=== PATIENT | female | born 1955 | race Caucasian/White ===

== ENCOUNTER → 2021-01-14 08:21 | Outpatient (CLI) | payer MEDICARE, SELFPAY ==
[2021-01-14 09:21] LABS: Hemoglobin A1C% w Est Avg Glu 5.9 % (4.0-6.0)
[2021-01-14 10:16] LABS: TSH w/ Reflex to FT4 0.06 uIU/mL (0.47-4.68)
[2021-01-14 11:49] LABS: Free T4, Direct Thyroxine 1.49 ng/dL (0.78-2.19)
== END ==
PROVIDERS: PCP Family Medicine; Referring Provider Family Medicine; Visit Provider Family Medicine
DX: E11.9 Type 2 diabetes mellitus without complications (principal); E03.9 Hypothyroidism, unspecified; G47.00 Insomnia, unspecified
CPT/HCPCS: 36415; 83036; 84439; 84443

== ENCOUNTER → 2021-02-11 10:58 | Outpatient (CLI) | payer MEDICARE, SELFPAY ==
--- NOTE | 2021-02-11 10:59 | DI.MG.S_ITS ---
BILATERAL DIGITAL SCREENING MAMMOGRAM 3D/2D WITH CAD POST LUMPECTOMY: 02/11/2021 CLINICAL: Routine screening. Personal history of right breast cancer. Family history of breast cancer. Comparison is made to exams dated: 10/18/2019 mammogram, 10/25/2017 mammogram, and 02/07/2017 mammogram - [facility]. The tissue of both breasts is heterogeneously dense. This may lower the sensitivity of mammography. Current study was also evaluated with a Computer Aided Detection (CAD) system. No significant masses, calcifications, or other findings are seen in either breast. There has been no significant interval change. IMPRESSION: NEGATIVE There is no mammographic evidence of malignancy. A 1 year screening mammogram is recommended. This exam was interpreted at Station ID: [id number]. NOTE: For mammograms, a report in lay terms will be sent to the patient. Approximately 15% of breast malignancies will not be visualized mammographically. In the management of a palpable breast mass, a negative mammogram must not discourage biopsy of a clinically suspicious lesion. Electronically Signed By: Cole franks/reyna:02/11/2021 11:25:49 letter sent: Normal Exam ACR BI-RADS Category 1: Negative 3341F
--- NOTE | 2021-02-11 10:59 | DI.MRI.S_ITS ---
BREAST MRI OF BOTH BREASTS- POST LUMPECTOMY WITH CAD: 02/11/2021 CLINICAL: Follow up. Comparison is made to exams dated: 10/18/2019 breast MRI, 10/25/2017 breast MRI, 02/07/2017 breast MRI - [facility], and 02/11/2021 mammogram - [facility]. Interpretation of this MRI was correlated with available mammograms and previous MRI scans. Informed consent was obtained from the patient. 20 cc of ProHance (Gadoteridol) nonionic contrast was injected. Axial T1, T2, sagittal T1, and pre and post contrast T1 images were obtained with a dedicated breast coil. Post processing was performed including computer aided calculations of any tumor volumes and dimensions. There is mild background parenchymal enhancement. Right breast: There are postsurgical changes redemonstrated in the lower inner quadrant status post partial mastectomy. No new discrete mass or suspicious enhancement to suggest malignancy. Left breast: No discrete mass or suspicious enhancement to suggest malignancy. Miscellaneous: No internal mammary or axillary lymphadenopathy by size criteria. A small region of T2 hyperintensity is redemonstrated in the right anterior cardiophrenic angle which appears similar to the prior MRI and may represent a small lymph node. Mild retrosternal soft tissue thickening anterior to the ascending thoracic aorta appears unchanged and likely represents scarring or postradiation changes. IMPRESSION: BENIGN 1. Postsurgical changes status post partial mastectomy within the lower inner quadrant of the right breast. No evidence of recurrent malignancy in the right or left breast. 2. No axillary or internal mammary lymphadenopathy by size criteria. 3. Mildly prominent retrosternal soft tissue thickening appears unchanged from the prior study and likely represents scarring. Recommend continued annual screening MRI if clinically indicated. This exam was interpreted at Station ID: [id number]. Electronically Signed By: Cole Mensah M.D. ddp/:02/11/2021 13:22:28 ACR BI-RADS Category 2: Benign Finding(s) 3342F
== END ==
PROVIDERS: PCP Family Medicine; Referring Provider Family Medicine; Visit Provider Family Medicine
DX: Z08 Encounter for follow-up examination after completed treatment for malignant neoplasm (principal); Z85.3 Personal history of malignant neoplasm of breast; Z12.31 Encounter for screening mammogram for malignant neoplasm of breast
CPT/HCPCS: 77049; 77063; 77067; A9579

== ENCOUNTER → 2021-03-03 11:37 | Outpatient (CLI) | payer MEDICARE, SELFPAY ==
[2021-03-03 13:05] LABS: Thyroid Stimulating Hormone 0.353 uIU/mL (0.47-4.68)
== END ==
PROVIDERS: PCP Family Medicine; Referring Provider Family Medicine; Visit Provider Family Medicine
DX: E03.9 Hypothyroidism, unspecified (principal)
CPT/HCPCS: 36415; 84443

== ENCOUNTER → 2021-04-07 11:21 | Outpatient (CLI) | payer MEDICARE, SELFPAY ==
[2021-04-07 13:01] LABS: Thyroid Stimulating Hormone 1.15 uIU/mL (0.47-4.68)
== END ==
PROVIDERS: PCP Family Medicine; Referring Provider Family Medicine; Visit Provider Family Medicine
DX: I10 Essential (primary) hypertension (principal); E03.9 Hypothyroidism, unspecified
CPT/HCPCS: 36415; 84443

== ENCOUNTER → 2021-05-20 10:30 | Outpatient (CLI) | payer MEDICARE, SELFPAY ==
--- NOTE | 2021-05-20 10:32 | DI.RAD.S_ITS ---
PROCEDURE: XR FOOT RT MIN 3V INDICATIONS: foot pain bilateral TECHNIQUE: 3 views of the foot were acquired. COMPARISON: None. FINDINGS: Bones: No fractures or dislocations. No suspicious bony lesions. Soft tissues: No tibiotalar joint effusion. Achilles tendon appears normal. IMPRESSION: Unremarkable right foot radiographs Approved by: Dawson Burrell M.D. on 05/20/2021 at 13:19
--- NOTE | 2021-05-20 10:32 | DI.RAD.S_ITS ---
PROCEDURE: XR FOOT LT MIN 3V INDICATIONS: foot pain bilateral TECHNIQUE: 3 nonweightbearing views of the foot were acquired. COMPARISON: None. FINDINGS: Bones: No acute fractures or dislocations. No suspicious bony lesions. Mild degenerative changes are seen in the 1st metatarsophalangeal joint. Scattered degenerative changes are seen in the interphalangeal joints of toes. A small plantar calcaneal spur is present. Soft tissues: No suspicious soft tissue calcification. IMPRESSION: No acute osseous abnormality. Mild scattered osteoarthrosis. If the symptoms persist, consider cross sectional imaging such as MRI or CT for further assessment. Dictated by: Mandeep Art M.D. on 05/20/2021 at 13:17 Approved by: Mandeep Art M.D. on 05/20/2021 at 13:18
== END ==
PROVIDERS: PCP Family Medicine; Referring Provider Family Medicine; Visit Provider Family Medicine
DX: G57.93 Unspecified mononeuropathy of bilateral lower limbs (principal); M79.671 Pain in right foot; M79.672 Pain in left foot; M19.072 Primary osteoarthritis, left ankle and foot
CPT/HCPCS: 73630

== ENCOUNTER → 2021-09-20 06:59 | Outpatient (CLI) | payer MEDICARE, SELFPAY ==
[2021-09-20 07:57] LABS: Hemoglobin A1C% w Est Avg Glu 5.7 % (4.0-6.0)
[2021-09-20 08:03] LABS: Alanine Aminotransferase 23 IU/L (<35); Albumin 4.3 g/dL (3.5-5.0); Albumin Globulin Ratio 1.8 (1.0-2.8); Alkaline Phosphatase 44 U/L (38-126); Aspartate Aminotransferase 28 IU/L (14-36); BUN Creatinine Ratio 17.4 (6-22); Bilirubin Total 0.6 mg/dL (0.2-1.3); Blood Urea Nitrogen 15 mg/dL (7-17); Calcium 9.5 mg/dL (8.4-10.2); Carbon Dioxide 33 mmol/L (22-32); Chloride 100 mmol/L (98-107); Cholesterol 150 mg/dL (140-199); Estimated Glomerular Filt Rate > 60.0 mL/min (>60); Globulin 2.4 g/dL (1.7-4.1); Glucose 94 mg/dL (80-110); HDL Cholesterol 56 mg/dL (40-60); HEMOLYSIS < 15 (0-50); LDL Cholesterol Calculated 67 mg/dL (<100); Sodium 139 mmol/L (137-145); Total Protein 6.7 g/dL (6.3-8.2); Triglycerides 136 mg/dL (35-150)
[2021-09-20 08:30] LABS: TSH w/ Reflex to FT4 1.84 uIU/mL (0.47-4.68)
== END ==
PROVIDERS: PCP Family Medicine; Referring Provider Family Medicine; Visit Provider Family Medicine
DX: E11.9 Type 2 diabetes mellitus without complications (principal); E78.5 Hyperlipidemia, unspecified; E03.9 Hypothyroidism, unspecified; G47.00 Insomnia, unspecified
CPT/HCPCS: 36415; 80053; 80061; 83036; 84443

== ENCOUNTER → 2021-10-18 11:17 | Outpatient (CLI) | payer MEDICARE, SELFPAY ==
[2021-10-18 13:16] LABS: COVID19 -Nasal RAPID Negative (Negative)
== END ==
PROVIDERS: PCP Family Medicine; Visit Provider Nurse Practitioner Family
DX: Z20.822 Contact with and (suspected) exposure to COVID-19 (principal)
CPT/HCPCS: 87635; C9803

== ENCOUNTER 2021-10-19 09:39 | Day surgery (SDC) | payer MEDICARE, SELFPAY ==
[2021-10-19 10:25] VITALS: BP 111/71; PULSE 53; RESP 16; TEMP 36.5; O2SAT 99; BMI 20.9
[2021-10-19] MEDS: PROPARACAINE 0.5% OPHTH SOL 2 DROPS EYE-OP (10:37)
[2021-10-19] MEDS: CATARACT EYE COMPOUND (10 DROPS/SYRINGE) 3 DROPS EYE-OP (10:40)
--- NOTE | 2021-10-19 11:05 | PM.PREOP ---
Pre-operative Note Interval Note History & Physical reviewed/Exam performed by Physician: Yes Changes to H&P: No
--- NOTE | 2021-10-19 11:06 | PM.OP.1 ---
Operative Date/Time/Diagnoses Pre-op diagnosis: Nuclear cataract right eye Procedure & Clinicians Procedure: Cataract Surgery Same procedure as scheduled: Yes Surgeon: Supa Hui Anesthesia Type: MAC +/- and Sedation Operative Notes Procedure in detail: Patient brought to the operating suite. Tetracaine drops placed in the right eye. Patient was prepped and draped in sterile manner. Wire lid speculum was placed in the eye. Betadine drops were placed on the eye. This was irrigated. Lidocaine jelly was placed on the eye. A paracentesis port was created with a side-port blade. 0.1 mL 1% preservative free lidocaine was injected into the anterior chamber. The anterior chamber was deepened with viscoelastic. 2.6 mm keratome was used to create a temporal clear corneal incision. Cystotome and Utrata forceps were used to create continuous tear capsulorrhexis. Balanced salt solution was used to hydro dissect the nucleus. The phacoemulsification handpiece was inserted and the nucleus was removed using the stop and chop technique. The irrigation aspiration handpiece was inserted and the remaining cortex was removed. Anterior chamber was deepened with viscoelastic. An Sweet ZXR00 intraocular lens with a power of 19.5 was injected into the capsular bag. Irrigation aspiration handpiece was inserted and the remaining viscoelastic was removed. Incision was hydrated with balanced salt solution and found to be leak free with pressure with Weck-Margo sponges. 0.1 mL Vigamox injected anterior chamber. 0.3 mL Kenalog 10 mg was injected subconjunctivally. Lid speculum was removed. The patient left the operating room in excellent condition. Complications: none Post-operative Condition: stable Disposition: same day surgery
[2021-10-19] MEDS: MOXIFLOXACIN INJ 4 MG/0.8 ML VIAL 0.5 MG EYE-OP (11:50)
[2021-10-19] MEDS: HYALURONATE SODIUM 30 MG-10 MG/ML SYRINGES 1 BOX INTRAOCULA (11:50)
[2021-10-19] MEDS: TETRACAINE 0.5% OPHTH DROPS 4 ML 2 DROPS EYE-OP (11:50)
[2021-10-19] MEDS: LIDOCAINE 2% (GLYDO) 6 ML GEL TOP (11:50)
[2021-10-19] MEDS: PHENYLEPHRINE/LIDOCAINE VIAL (OR) 0.2 ML EYE-OP (11:50)
[2021-10-19] MEDS: TRIAMCINOLONE 50 MG/5 ML VIAL INJ (11:50)
[2021-10-19] MEDS: BALANCED SALT IRRIG SOLN NO.2 500 ML, EPINEPHrine 1 MG IRR (11:50)
[2021-10-19 12:00] VITALS: BP 99/67; PULSE 59; RESP 16; TEMP 36.4; O2SAT 97
--- NOTE | 2021-10-19 13:52 | SUR.PHASEII ---
Late entry: BP low, pt stated she runs low, BP on admit 111 systolic. Pt denies any dizziness or lightheadedness, left unit in stable condition.
== END 2021-10-19 12:30 | disposition home or self-care (01) ==
PROVIDERS: PCP Family Medicine; Referring Provider Ophthalmology; Visit Provider Ophthalmology
PROC: (CPT 66984; principal; 2021-10-19 11:15)
DX: H25.11 Age-related nuclear cataract, right eye (principal); R73.03 Prediabetes; E03.9 Hypothyroidism, unspecified
CPT/HCPCS: 66984; J0171; J2250; J3301; V2788

== ENCOUNTER → 2021-11-05 09:24 | Outpatient (CLI) | payer MEDICARE, SELFPAY ==
[2021-11-05 09:58] LABS: COVID19 -Nasal RAPID Negative (Negative)
== END ==
PROVIDERS: PCP Family Medicine; Visit Provider Nurse Practitioner Family
DX: Z20.822 Contact with and (suspected) exposure to COVID-19 (principal)
CPT/HCPCS: 87635

== ENCOUNTER → 2021-11-08 11:26 | Outpatient (CLI) | payer MEDICARE, SELFPAY ==
[2021-11-08 16:13] LABS: COVID19 -Nasal RAPID Negative (Negative)
== END ==
PROVIDERS: PCP Family Medicine; Referring Provider Physician Assistant; Visit Provider Physician Assistant
DX: Z01.812 Encounter for preprocedural laboratory examination (principal); Z20.822 Contact with and (suspected) exposure to COVID-19
CPT/HCPCS: 87635; C9803

== ENCOUNTER 2021-11-09 07:57 | Day surgery (SDC) | payer MEDICARE, SELFPAY ==
[2021-11-09 08:58] VITALS: BP 98/59; PULSE 57; RESP 16; TEMP 36.3; O2SAT 99; BMI 20.5
[2021-11-09] MEDS: PROPARACAINE 0.5% OPHTH SOL 2 DROPS EYE-OP (09:03)
[2021-11-09] MEDS: CATARACT EYE COMPOUND (10 DROPS/SYRINGE) 3 DROPS EYE-OP (09:05)
--- NOTE | 2021-11-09 09:51 | PM.PREOP ---
Pre-operative Note Interval Note History & Physical reviewed/Exam performed by Physician: Yes Changes to H&P: No
--- NOTE | 2021-11-09 09:51 | PM.OP.1 ---
Operative Date/Time/Diagnoses Pre-op diagnosis: Nuclear Cataract Left eye Post-op diagnosis: same Procedure & Clinicians Same procedure as scheduled: Yes Surgeon: Supa Hui Anesthesia Type: MAC +/- and Sedation Operative Notes Procedure in detail: Patient brought to the operating suite. Tetracaine drops placed in the left eye. Patient was prepped and draped in sterile manner. Wire lid speculum was placed in the eye. Betadine drops were placed on the eye. This was irrigated. Lidocaine jelly was placed on the eye. A paracentesis port was created with a side-port blade. 0.1 mL 1% preservative free lidocaine was injected into the anterior chamber. The anterior chamber was deepened with viscoelastic. 2.6 mm keratome was used to create a temporal clear corneal incision. Cystotome and Utrata forceps were used to create continuous tear capsulorrhexis. Balanced salt solution was used to hydro dissect the nucleus. The phacoemulsification handpiece was inserted and the nucleus was removed using the stop and chop technique. The irrigation aspiration handpiece was inserted and the remaining cortex was removed. Anterior chamber was deepened with viscoelastic. An Sweet ZXR00 intraocular lens with a power of 19.5 was injected into the capsular bag. Irrigation aspiration handpiece was inserted and the remaining viscoelastic was removed. Incision was hydrated with balanced salt solution and found to be leak free with pressure with Weck-Margo sponges. 0.1 mL Vigamox injected anterior chamber. 0.3 mL Kenalog 10 mg was injected subconjunctivally. Lid speculum was removed. The patient left the operating room in excellent condition. Complications: none Post-operative Condition: stable Disposition: same day surgery
[2021-11-09] MEDS: MOXIFLOXACIN INJ 4 MG/0.8 ML VIAL 0.5 MG EYE-OP (10:13)
[2021-11-09] MEDS: HYALURONATE SODIUM 30 MG-10 MG/ML SYRINGES 1 BOX INTRAOCULA (10:13)
[2021-11-09] MEDS: BALANCED SALT IRRIG SOLN NO.2 500 ML, EPINEPHrine 1 MG IRR (10:14)
[2021-11-09] MEDS: PHENYLEPHRINE/LIDOCAINE VIAL (OR) 0.2 ML EYE-OP (10:14)
[2021-11-09] MEDS: TETRACAINE 0.5% OPHTH DROPS 4 ML 2 DROPS EYE-OP (10:14)
[2021-11-09] MEDS: TRIAMCINOLONE 50 MG/5 ML VIAL INJ (10:14)
[2021-11-09] MEDS: LIDOCAINE 2% (GLYDO) 6 ML GEL TOP (10:14)
[2021-11-09 10:25] VITALS: BP 91/56; PULSE 56; RESP 16; TEMP 36.7; O2SAT 99
== END 2021-11-09 11:50 | disposition home or self-care (01) ==
PROVIDERS: PCP Family Medicine; Referring Provider Ophthalmology; Visit Provider Ophthalmology
PROC: (CPT 66984; principal; 2021-11-09 09:45)
DX: H25.12 Age-related nuclear cataract, left eye (principal); R73.03 Prediabetes
CPT/HCPCS: 66984; 82962; J0171; J2250; J3301; V2788

== ENCOUNTER 2022-01-19 12:18 | Emergency (ER) | payer MEDICARE, SELFPAY ==
[2022-01-19 12:32] VITALS: BP 140/68; PULSE 74; RESP 18; TEMP 36.8; O2SAT 98; BMI 20.8
[2022-01-19 12:35] VITALS: BP 140/68; PULSE 69; O2SAT 98
[2022-01-19] MEDS: SODIUM CHLORIDE 0.9% 1,000 ML 1000 ML IV (12:48)
[2022-01-19] MEDS: ONDANSETRON 4 MG/2 ML INJ IV (12:52)
[2022-01-19 13:00] VITALS: BP 131/59; PULSE 62; RESP 18; O2SAT 96
[2022-01-19 13:15] LABS: Bacteria Urine None Seen; Calcium Oxalate Crystals Urine Moderate; Culture Indicated Urine Cult Not Indicated; RBC Urine 1-5/HPF (0-5/HPF); WBC Urine None Seen (0-5/HPF)
[2022-01-19 13:16] LABS: Add Manual Diff / Slide Review NO; Basophils Absolute Auto 0 /uL (0-100); Basophils Percent Auto 0.6 % (0-2); Eosinophils Absolute Auto 100 /uL (0-450); Eosinophils Percent Auto 1.7 % (2-4); Hematocrit 41.9 % (36-46); Hemoglobin 14.4 g/dL (12.0-16.0); Lymphocytes Absolute Auto 1100 /uL (1100-4500); Lymphocytes Percent Auto 13.2 % (25-40); Mean Corpuscular HGB Conc 34.4 % (30-36); Mean Corpuscular Hemoglobin 31.8 PG (26-34); Mean Corpuscular Volume 92.6 fL (80-100); Monocytes Absolute Auto 500 /uL (0-900); Monocytes Percent Auto 6.2 % (3-14); Neutrophils Absolute Auto 6600 /uL (1500-7000); Neutrophils Percent Auto 78.3 % (50-75); Platelet Count 312 X10^3/uL (150-400); Red Blood Cell Count 4.52 X10^6/uL (4.0-5.2); Red Cell Distribution Width 12.4 % (11.6-14.8); White Blood Cell Count 8.4 X10^3/uL (4.5-11.0)
[2022-01-19 13:21] LABS: Alanine Aminotransferase 20 IU/L (<35); Albumin 4.8 g/dL (3.5-5.0); Albumin Globulin Ratio 1.6 (1.0-2.8); Alkaline Phosphatase 60 U/L (38-126); Aspartate Aminotransferase 29 IU/L (14-36); BUN Creatinine Ratio 18.8 (6-22); Bilirubin Total 0.5 mg/dL (0.2-1.3); Blood Urea Nitrogen 13 mg/dL (7-17); Calcium 9.6 mg/dL (8.4-10.2); Carbon Dioxide 26 mmol/L (22-32); Chloride 103 mmol/L (98-107); Estimated Glomerular Filt Rate > 60.0 mL/min (>60); Glucose 117 mg/dL (80-110); HEMOLYSIS < 15 (0-50); Lipase 118 U/L (23-300); Potassium 3.9 mmol/L (3.4-5.1); Sodium 137 mmol/L (137-145); Total Protein 7.8 g/dL (6.3-8.2)
--- NOTE | 2022-01-19 13:21 | ED.NAVMDI ---
HPI - Nausea/Vomiting/Diarrhea General Chief complaint: Nausea/Vomiting/Diarrhea Stated complaint: Dehydrated, nausea vomiting Time Seen by Provider: 01/19/22 13:20 Source: patient Mode of arrival: Family Vehicle History of Present Illness HPI Narrative: Patient is a 66-year-old female who presents with diarrhea nausea and vomiting. She says it started yesterday. She has been unable to keep anything down today. She really does not have any pain. She just feels like she might be dehydrated. Her neighbor had something similar. Still lightheaded when she stands but she has passed. She has no chest pain or palpitations. Not had any fever or chills. Related Data Home Medications Medication Instructions Recorded Confirmed clotrimazole 1 % topical cream 1 applictn TOP BID PRN 09/07/20 11/09/21 (Antifungal (clotrimazole)) cholecalciferol (vitamin D3) 25 25 mcg PO DAILY 09/28/21 11/09/21 mcg (1,000 unit) capsule citracel w/ D3 8 ml PO DAILY 09/28/21 11/09/21 magnesium 250 mg tablet 250 mg PO DAILY 09/28/21 11/09/21 melatonin 10 mg tablet 10 mg PO BEDTIME PRN 09/28/21 11/09/21 potassium citrate 99mg 99 mg PO DAILY 09/28/21 11/09/21 prasterone (dhea) 25 mg capsule 25 mg PO DAILY 09/28/21 11/09/21 (DHEA) pro argl 1 tsp PO DAILY 09/28/21 11/09/21 vit B complex 100 combo no.2 100 tab PO 09/28/21 09/28/21 mg tablet,extended release (Balanced B-100 Complex) vitamin K2 100 mcg capsule 100 mcg PO DAILY 09/28/21 11/09/21 Previous Rx's Medication Instructions Recorded metformin 500 mg tablet See Rx Instructions .ROUTE 02/22/21 .COMPLEX #360 tab rosuvastatin 20 mg tablet 20 mg PO DAILY #90 tab 02/22/21 halobetasol propionate 0.05 % 1 applic TOP MONTHLY #15 g 09/28/21 topical cream levothyroxine 75 mcg tablet 75 mcg PO DAILY #90 tab 12/28/21 zaleplon 5 mg capsule See Rx Instructions .ROUTE 01/07/22 .COMPLEX #30 cap ondansetron 4 mg disintegrating 4 mg PO Q8H PRN #10 tab 01/19/22 tablet Allergies Allergy/AdvReac Type Severity Reaction Status Date / Time No Known Drug Allergies Allergy Verified 01/19/22 12:41 Review of Systems Review of Systems Narrative: GENERAL: Denies chills, fatigue, malaise, fever, sweats, travel HEENT: Denies sinus pain, ear pain, sore throat, difficulty swallowing, neck pain RESPIRATORY: Denies dyspnea, cough, wheezing, hemoptysis, sputum. CARDIOVASCULAR: Denies chest pain, palpitations, orthopnea, edema GASTROINTESTINAL: See HPI : Denies dysuria, frequency, incontinence, hematuria, urinary retention, flank pain. MUSCULOSKELETAL: Denies weakness, joint pain, or bony pain SKIN: No rash, no erythema, no pruritus NEUROLOGIC: Denies weakness, dizziness, headache, numbness, change in speech, confusion PSYCHIATRIC: No concerning psychosocial issues. 12 point review of systems is negative except for those stated above and HPI Patient History Medical History Breast cancer Diabetes mellitus History of right breast cancer (~2009) Hyperlipidemia Hypothyroidism Insomnia Surgical History Anesthesia Hx of hysterectomy (~2007) S/P lumpectomy, right breast (~2009) Family History Father Hyperlipidemia Mother Ovarian cancer Social History household members: spouse Smoking Status: Never smoker alcohol intake: current Smoking Status: Never smoker alcohol intake frequency: a few times a week Alcohol type: wine Substance Use Type: does not use Exam Initial Vital Signs Initial Vital Signs: Vital Signs Temperature 98.3 F 01/19/22 12:32 Pulse Rate 74 01/19/22 12:32 Respiratory Rate 18 01/19/22 12:32 Blood Pressure 140/68 01/19/22 12:32 Pulse Oximetry 98 01/19/22 12:32 GENERAL: Alert well-appearing 66-year-old female in no acute distress. HEENT: Head atraumatic,EOMI, pupils reactive, face symmetric, moist mucous membranes CARDIOVASCULAR: Regular rate and rhythm without murmurs, rubs or gallops. RESPIRATORY: Breath sounds equal bilaterally, no wheezes rales or rhonchi. ABDOMEN: Soft, nontender. Normoactive bowel sounds all 4 quadrants. No guarding or rebound. EXTREMITIES: Normal range of motion, no clubbing or edema. Neurovascularly intact NEUROLOGICAL: Alert and oriented x4.Normal gait and speech. SKIN: Warm, dry, no laceration, no petechiae, no rashes or lesions. Course Orders Ordered: ED Orders 01/19/22 12:44 Complete Blood Count AUTO DIFF Stat Comprehensive Metabolic Panel Stat Lipase Stat 01/19/22 12:49 Urine Microscopic Stat Discontinued Medications Sodium Chloride (Normal Saline 0.9%) 1,000 mls @ 1,000 mls/hr IV BOLUS ONE Stop: 01/19/22 13:43 Last Infusion: 01/19/22 14:10 Dose: 0 mls/hr Documented by: Admin: 01/19/22 12:48 Dose: 1,000 mls/hr Documented by: JANEEN Ondansetron HCl (Ondansetron 4 Mg/2 Ml Inj) 4 mg IV NOW ONE Stop: 01/19/22 12:45 Last Admin: 01/19/22 12:52 Dose: 4 mg Documented by: JANEEN Vital Signs Vital signs: Vital Signs - 8 hr 01/19/22 12:32 01/19/22 12:35 01/19/22 13:00 Temperature 98.3 F Pulse Rate 74 69 62 Respiratory Rate 18 18 Blood Pressure 140/68 140/68 131/59 L Pulse Oximetry 98 98 96 01/19/22 13:30 01/19/22 14:00 01/19/22 14:01 Temperature Pulse Rate 58 L 64 62 Respiratory Rate 18 15 14 Blood Pressure 115/55 L 100/59 L Pulse Oximetry 96 MDM - Nausea/Vomiting/Diarrhea Lab Data Result diagrams: 01/19/22 12:44 01/19/22 12:44 Labs: Lab Results 01/19/22 01/19/22 01/19/22 Range/Units 12:44 12:44 12:49 WBC 8.4 (4.5-11.0) X10^3/uL RBC 4.52 (4.0-5.2) X10^6/uL Hgb 14.4 (12.0-16.0) g/dL Hct 41.9 (36-46) % MCV 92.6 (80-100) fL MCH 31.8 (26-34) PG MCHC 34.4 (30-36) % RDW 12.4 (11.6-14.8) % Plt Count 312 (150-400) X10^3/uL Neut % (Auto) 78.3 H (50-75) % Lymph % (Auto) 13.2 L (25-40) % [place] % (Auto) 6.2 (3-14) % Eos % (Auto) 1.7 L (2-4) % Baso % (Auto) 0.6 (0-2) % Neut # (Auto) 6600 (3345-4271) /uL Lymph # (Auto) 1100 (7789-0778) /uL [place] # (Auto) 500 (0-900) /uL Eos # (Auto) 100 (0-450) /uL Baso # (Auto) 0 (0-100) /uL Sodium 137 (137-145) mmol/L Potassium 3.9 (3.4-5.1) mmol/L Chloride 103 (98-107) mmol/L Carbon Dioxide 26 (22-32) mmol/L BUN 13 (7-17) mg/dL Creatinine 0.69 (0.52-1.04) mg/dL Estimated GFR > 60.0 (>60) mL/min BUN/Creatinine Ratio 18.8 (6-22) Glucose 117 H (80-110) mg/dL Calcium 9.6 (8.4-10.2) mg/dL Total Bilirubin 0.5 (0.2-1.3) mg/dL AST 29 (14-36) IU/L ALT 20 (<35) IU/L Alkaline Phosphatase 60 (38-126) U/L Total Protein 7.8 (6.3-8.2) g/dL Albumin 4.8 (3.5-5.0) g/dL Globulin 3.0 (1.7-4.1) g/dL Albumin/Globulin Ratio 1.6 (1.0-2.8) Lipase 118 (23-300) U/L Urine RBC 1-5/hpf (0-5/HPF) Urine WBC None seen (0-5/HPF) Calcium Oxalate Crystal Moderate H Urine Bacteria None seen (None) Ur Culture Indicated? Cult not indicated Urine Dip Bedside Urine Glucose Negative Bedside Urine Bilirubin - Negative Bedside Urine Ketone - Negative Urine Specific [place] 1.015 Bedside Urine Occult Blood +/- Bedside Urine pH 7.0 Bedside Urine Protein +/- 15 Bedside Urine Urobilinogen - Negative Bedside Urine Nitrite - Negative Bedside Urine Leukocytes - Negative Esterase MDM Narrative Medical decision making narrative: Patient has not had any vomiting since Zofran. She has been feeling better with IV fluids. Abdomen is examined is in is soft and nontender. Blood work is overall reassuring elevation in creatinine but not significant. No priors to compare. Discharge Plan Departure Patient Disposition: Home Clinical Impression: Gastroenteritis Instructions: DI for Viral Gastroenteritis -- Adult Activity Restrictions/Additional Instructions: *You have been diagnosed with gastroenteritis *What to do: At this time have a stomach bug. Increase fluid intake as tolerated. May increase diet as tolerated. *Continue to take medications as directed Zofran 4 mg every 8 hours as needed for nausea or vomiting *Follow up with your primary care provider in 2-3 days or call [phone] *Return to ER if you should have persistent vomiting, worsening diarrhea pain passing out lightheadedness palpitations or any new, worsening or concerning symptoms Prescriptions: New ondansetron 4 mg tablet,disintegrating 4 mg PO Q8H PRN (Reason: nausea and vomiting) Qty: 10 0RF No Action metformin 500 mg tablet See Rx Instructions .ROUTE .COMPLEX Qty: 360 3RF Dose Instruction: TAKE 2 TABLETS (1000MG) TWOTIMES A DAY Rx Instructions: TAKE 2 TABLETS (1000MG) TWOTIMES A DAY rosuvastatin 20 mg tablet 20 mg PO DAILY Qty: 90 3RF levothyroxine 75 mcg tablet 75 mcg PO DAILY Qty: 90 3RF zaleplon 5 mg capsule See Rx Instructions .ROUTE .COMPLEX Qty: 30 0RF Dose Instruction: TAKE 1 CAPSULE DAILY Rx Instructions: TAKE 1 CAPSULE DAILY clotrimazole [Antifungal (clotrimazole)] 1 % cream 1 applictn TOP BID PRN (Reason: Rash) 0RF Label Comments: few weeks halobetasol propionate 0.05 % cream 1 applic TOP MONTHLY Qty: 15 0RF pro argl 1 tsp PO DAILY 0RF melatonin 10 mg tablet 10 mg PO BEDTIME PRN (Reason: Sleep) 0RF vitamin K2 100 mcg capsule 100 mcg PO DAILY 0RF prasterone (dhea) [DHEA] 25 mg capsule 25 mg PO DAILY 0RF citracel w/ D3 8 ml PO DAILY 0RF potassium citrate 99mg 99 mg PO DAILY 0RF magnesium 250 mg tablet 250 mg PO DAILY 0RF cholecalciferol (vitamin D3) 25 mcg (1,000 unit) capsule 25 mcg PO DAILY 0RF Balanced B-100 Complex 100 mg tablet extended release PO 0RF Referrals: Artie Heaton MD [Primary Care Provider] -
[2022-01-19 13:30] VITALS: BP 115/55; PULSE 58; RESP 18; O2SAT 96
[2022-01-19 14:00] VITALS: PULSE 64; RESP 15
[2022-01-19 14:01] VITALS: BP 100/59; PULSE 62; RESP 14
--- NOTE | 2022-01-19 14:18 | PC.NURSE ---
tolerated water. feels a little nauseated. requests to go home
== END 2022-01-19 14:30 | disposition home or self-care (01) ==
PROVIDERS: Emergency Provider Emergency Medicine; PCP Family Medicine
DX: K52.9 Noninfective gastroenteritis and colitis, unspecified (principal)
CPT/HCPCS: 36415; 80053; 81003; 81015; 83690; 85025; 96361; 96374; 99284; J2405

== ENCOUNTER → 2022-03-14 11:15 | Outpatient (CLI) | payer MEDICARE, SELFPAY ==
--- NOTE | 2022-03-14 11:19 | DI.MG.S_ITS ---
BILATERAL DIGITAL SCREENING MAMMOGRAM 3D/2D WITH CAD: 03/14/2022 CLINICAL: Routine screening. Breast cancer. Family history of breast cancer. Comparison is made to exams dated: 02/11/2021 mammogram - [facility], 10/18/2019 mammogram, and 10/25/2017 mammogram - [facility]. The tissue of both breasts is heterogeneously dense. This may lower the sensitivity of mammography. Current study was also evaluated with a Computer Aided Detection (CAD) system. There are benign post operative findings in the right breast. There also are biopsy clips in the left breast. No significant masses, calcifications, or other findings are seen in either breast. There has been no significant interval change. IMPRESSION: BENIGN There is no mammographic evidence of malignancy. A 1 year screening mammogram is recommended. This exam was interpreted at Station ID: [id number]. NOTE: For mammograms, a report in lay terms will be sent to the patient. Approximately 15% of breast malignancies will not be visualized mammographically. In the management of a palpable breast mass, a negative mammogram must not discourage biopsy of a clinically suspicious lesion. Electronically Signed By: Leon Muniz acr/penrad:03/14/2022 12:46:41 letter sent: Normal Exam ACR BI-RADS Category 2: Benign Finding(s) 3342F
--- NOTE | 2022-03-14 11:19 | DI.MRI.S_ITS ---
BREAST MRI OF BOTH BREASTS: 03/14/2022 CLINICAL: Breast cancer. PROCEDURE: MR BREAST BI WO/W CON INDICATIONS: hx breast ca, yearly f/u w mammogram TECHNIQUE: The patient was placed prone in a dedicated breast imaging coil. Precontrast axial STIR and 3D FLASH without fat saturation sequences were obtained. Both before and after bolus injection of contrast, sequential 1-minute axial 3D FLASH with fat saturation sequences for 3 time points, with subtraction images and maximum intensity projections (MIP's) generated. Delayed sagittal FLASH images with fat saturation were also obtained. Computer-aided detection, including computer algorithm analysis of MRI image data for lesion detection and characterization, pharmacokinetic analysis, with further physician review for interpretation, was performed. COMPARISON: Outside Facility, , MRI BREAST BILATERAL W / WO CONTRAST, 10/18/2019, 12:55. [facility], MR, MR BREAST BI WO/W CON, 02/11/2021, 11:08. FINDINGS: Image quality: Excellent. There is mild background parenchymal enhancement. Right breast: Postsurgical changes in the lower inner quadrant of the right breast are again seen. The right breast demonstrates no abnormal focus, mass, or abnormal enhancement. No axillary or internal mammary chain adenopathy. Left breast: The left breast demonstrates no abnormal focus, mass, or abnormal enhancement. No axillary or internal mammary chain adenopathy. Miscellaneous: A 1.4 x 0.8 centimeter region of T2 hyperintensity in the right anterior cardiophrenic angle is unchanged compared to prior MRI. Retrosternal soft tissue thickening is not as well appreciated on this MRI compared to prior MRI. IMPRESSION: BENIGN 1. Postsurgical changes in the lower inner quadrant of the right breast. 2. No evidence of recurrence malignancy in the right or left breast. 3. No evidence of axillary adenopathy or internal mammary chain adenopathy. This exam was interpreted at Station ID: [id number]. Electronically Signed By: Leon Muniz acr/:03/14/2022 15:00:45 Entry: - 03/15/2022 14:55:11 ACR BI-RADS Category 2: Benign Finding(s) 3342F
== END ==
PROVIDERS: PCP Family Medicine; Referring Provider Family Medicine; Visit Provider Family Medicine
DX: Z12.31 Encounter for screening mammogram for malignant neoplasm of breast (principal); Z85.3 Personal history of malignant neoplasm of breast; Z80.3 Family history of malignant neoplasm of breast; Z12.39 Encounter for other screening for malignant neoplasm of breast
CPT/HCPCS: 77049; 77063; 77067; A9579

== ENCOUNTER → 2022-03-21 10:49 | Outpatient (CLI) | payer MEDICARE, SELFPAY | PROVIDERS: PCP Family Medicine; Referring Provider Family Medicine; Visit Provider Family Medicine | DX: K52.9 Noninfective gastroenteritis and colitis, unspecified (principal) | CPT/HCPCS: 87045; 87177; 87899 ==

== ENCOUNTER → 2022-03-23 17:05 | Outpatient (CLI) | payer MEDICARE, SELFPAY | PROVIDERS: PCP Family Medicine; Referring Provider Family Medicine; Visit Provider Family Medicine | DX: K52.9 Noninfective gastroenteritis and colitis, unspecified (principal) | CPT/HCPCS: 87177 ==

== ENCOUNTER → 2022-09-27 07:04 | Outpatient (CLI) | payer MEDICARE, SELFPAY ==
[2022-09-27 08:28] LABS: Cholesterol 165 mg/dL (140-199); HDL Cholesterol 65 mg/dL (40-60); LDL Cholesterol Calculated 76 mg/dL (<100); Triglycerides 120 mg/dL (35-150)
[2022-09-27 14:39] LABS: Hemoglobin A1C% w Est Avg Glu 6.2 % (4.0-6.0)
== END ==
PROVIDERS: PCP Family Medicine; Referring Provider Family Medicine; Visit Provider Family Medicine
DX: E11.69 Type 2 diabetes mellitus with other specified complication (principal); E78.5 Hyperlipidemia, unspecified; E03.9 Hypothyroidism, unspecified
CPT/HCPCS: 36415; 80061; 83036

== ENCOUNTER → 2022-10-10 09:46 | Outpatient (CLI) | payer MEDICARE, SELFPAY | PROVIDERS: PCP Family Medicine; Referring Provider Family Medicine; Visit Provider Family Medicine | DX: Z78.0 Asymptomatic menopausal state (principal); Z13.820 Encounter for screening for osteoporosis; M85.852 Other specified disorders of bone density and structure, left thigh; Z92.23 Personal history of estrogen therapy; Z85.3 Personal history of malignant neoplasm of breast; Z90.710 Acquired absence of both cervix and uterus | CPT/HCPCS: 77080 ==

== ENCOUNTER → 2023-04-13 10:51 | Outpatient (CLI) | payer MEDICARE, SELFPAY ==
--- NOTE | 2023-04-13 | DI.MG.S_ITS ---
BILATERAL DIGITAL SCREENING MAMMOGRAM 3D/2D WITH CAD: 04/13/2023 CLINICAL: Routine screening. Family history of breast cancer. Personal history of right breast cancer. Comparison is made to exams dated: 03/14/2022 breast MRI, 03/14/2022 mammogram, 02/11/2021 breast MRI, and 02/11/2021 mammogram - [facility]. Both breasts are heterogeneously dense, which may obscure small masses (category c / 51-75% glandular tissue). Current study was also evaluated with a Computer Aided Detection (CAD) system. There are benign post operative findings in the right breast. There also are biopsy clips in the left breast. No significant masses, calcifications, or other findings are seen in either breast. There has been no significant interval change. IMPRESSION: BENIGN There is no mammographic evidence of malignancy. A 1 year screening mammogram is recommended. This exam was interpreted at Station ID: [id number]. NOTE: For mammograms, a report in lay terms will be sent to the patient. Approximately 15% of breast malignancies will not be visualized mammographically. In the management of a palpable breast mass, a negative mammogram must not discourage biopsy of a clinically suspicious lesion. Electronically Signed By: Michael garcia/reyna:04/13/2023 11:39:57 letter sent: Normal Exam ACR BI-RADS Category 2: Benign Finding(s) 3342F
--- NOTE | 2023-04-13 10:52 | DI.MRI.S_ITS ---
BREAST MRI OF BOTH BREASTS: 04/13/2023 CLINICAL: Routine screening. Personal history of right breast cancer. Family history of breast cancer. Comparison is made to exams dated: 04/13/2023 mammogram, 03/14/2022 breast MRI, 03/14/2022 mammogram, and 02/11/2021 breast MRI - [facility]. PROCEDURE: MR BREAST BI WO/W CON INDICATIONS: yearly follow up/ hx breast cancer TECHNIQUE: The patient was placed prone in a dedicated breast imaging coil. Precontrast axial STIR and 3D FLASH without fat saturation sequences were obtained. Both before and after bolus injection of contrast, sequential 1-minute axial 3D FLASH with fat saturation sequences for 3 time points, with subtraction images and maximum intensity projections (MIP's) generated. Delayed sagittal FLASH images with fat saturation were also obtained. Computer-aided detection, including computer algorithm analysis of MRI image data for lesion detection and characterization, pharmacokinetic analysis, with further physician review for interpretation, was performed. FINDINGS: Image quality: Excellent. There is minimal background parenchymal enhancement on the right. Mild background parenchymal enhancement is seen on the left. Right breast: There are postsurgical changes. No suspicious mass, focus, or non mass enhancement. Left breast: There are biopsy clips. No suspicious mass, focus, or non mass enhancement. Miscellaneous: No suspicious axillary or internal mammary adenopathy. Similar T2 hyperintense focus at the right costophrenic angle (2/16). IMPRESSION: BENIGN No MRI evidence of malignancy. Stable postsurgical changes. BIRADS 2 This exam was interpreted at Station ID: [id number]. Electronically Signed By: Michael Rodriguez M.D. lc/:04/13/2023 12:34:29 copy to: Robert Ayala ACR BI-RADS Category 2: Benign Finding(s) [id number]
== END ==
PROVIDERS: PCP Family Medicine; Referring Provider Family Medicine; Visit Provider Family Medicine
DX: Z12.31 Encounter for screening mammogram for malignant neoplasm of breast (principal); Z85.3 Personal history of malignant neoplasm of breast; Z80.3 Family history of malignant neoplasm of breast
CPT/HCPCS: 77049; 77063; 77067; A9579

== ENCOUNTER → 2023-04-21 16:23 | Outpatient (CLI) | payer MEDICARE, SELFPAY ==
[2023-04-21 17:27] LABS: Creatinine Urine Random 88.6 mg/dL
[2023-04-21 17:38] LABS: Microalbumin Urine Random < 0.6 mg/dL (0-1.6)
[2023-04-22 05:25] LABS: x Labcorp Estim. Avg Glu (eAG) 128 mg/dL (.); x Labcorp Hemoglobin A1c 6.1 % (4.8-5.6)
== END ==
PROVIDERS: PCP Family Medicine; Referring Provider Family Medicine; Visit Provider Family Medicine
DX: E11.69 Type 2 diabetes mellitus with other specified complication (principal)
CPT/HCPCS: 36415; 82043; 82570; 83036

== ENCOUNTER → 2023-08-15 14:51 | Outpatient (CLI) | payer MEDICARE, SELFPAY ==
--- NOTE | 2023-08-15 | DI.RAD.S_ITS ---
PROCEDURE: XR ANKLE RT MIN 3V INDICATIONS: ANKLE PAIN TECHNIQUE: 3 views of the ankle were acquired. COMPARISON: None. FINDINGS: Bones: Nondisplaced transverse, slightly comminuted fracture of the lateral malleolus. The ankle mortise remains intact. Additionally, there is a mildly distracted fracture at the base of the 5th metatarsal. No suspicious bone lesions or significant degeneration. Soft tissues: No tibiotalar joint effusion. Achilles tendon appears normal. IMPRESSION: 1. Nondisplaced lateral malleolar fractures and mildly distracted 5th metatarsal base fracture. 2. No malalignment. Dictated by: Marjan Mart M.D. on 08/15/2023 at 20:37 Approved by: Marjan Mart M.D. on 08/15/2023 at 20:40
== END ==
PROVIDERS: PCP Family Medicine; Referring Provider Podiatrist; Visit Provider Podiatrist
DX: S82.64XA Nondisplaced fracture of lateral malleolus of right fibula, initial encounter for closed fracture (principal); M25.571 Pain in right ankle and joints of right foot; S92.351A Displaced fracture of fifth metatarsal bone, right foot, initial encounter for closed fracture
CPT/HCPCS: 73610

== ENCOUNTER → 2023-09-08 07:47 | Outpatient (CLI) | payer MEDICARE, SELFPAY ==
--- NOTE | 2023-09-08 07:49 | DI.RAD.S_ITS ---
PROCEDURE: XR ANKLE RT MIN 3V INDICATIONS: FRACTURE RIGHT FIFTH METATARSAL BASE AND LATERAL MALLEOLUS TECHNIQUE: 3 views of the ankle were acquired. COMPARISON: [facility], CR, XR ANKLE RT MIN 3V, 08/15/2023, 15:08. FINDINGS: Bones: Ongoing healing of lateral malleolar fracture which is in unchanged alignment. Ongoing healing of mildly displaced fracture at the base of the 5th metatarsal. Ankle mortise is intact and normally aligned. No new fractures identified. Soft tissues: No tibiotalar joint effusion. Achilles tendon appears normal. IMPRESSION: Ongoing healing of lateral malleolar and 5th metatarsal base fracture in similar alignment compared to prior. Dictated by: Carolin Jiang M.D. on 09/08/2023 at 12:12 Approved by: Carolin Jiang M.D. on 09/08/2023 at 12:14
--- NOTE | 2023-09-08 07:49 | DI.RAD.S_ITS ---
PROCEDURE: XR FOOT RT MIN 3V INDICATIONS: FRACTURE RIGHT FIFTH METATARSAL BASE AND LATERAL MALLEOLUS TECHNIQUE: 3 views of the foot were acquired. COMPARISON: Right ankle radiographs 08/15/2023 FINDINGS: Bones: Ongoing healing of mildly displaced and comminuted fracture of the base of the 5th metatarsal. No new fracture identified. No suspicious bony lesions. Soft tissues: No tibiotalar joint effusion. Achilles tendon appears normal. IMPRESSION: Ongoing healing of 5th metatarsal base fracture. Please see separately dictated ankle radiograph for description of lateral malleolar fracture. Dictated by: Carolin Jiang M.D. on 09/08/2023 at 12:15 Approved by: Carolin Jiang M.D. on 09/08/2023 at 12:17
== END ==
PROVIDERS: PCP Family Medicine; Referring Provider Podiatrist; Visit Provider Podiatrist
DX: S92.351D Displaced fracture of fifth metatarsal bone, right foot, subsequent encounter for fracture with routine healing (principal); S82.61XD Displaced fracture of lateral malleolus of right fibula, subsequent encounter for closed fracture with routine healing; X58.XXXD Exposure to other specified factors, subsequent encounter
CPT/HCPCS: 73610; 73630

== ENCOUNTER → 2023-09-22 09:58 | Outpatient (CLI) | payer MEDICARE, SELFPAY ==
--- NOTE | 2023-09-22 | DI.RAD.S_ITS ---
PROCEDURE: XR FOOT RT MIN 3V INDICATIONS: ANKLE FX TECHNIQUE: 3 views of the foot were acquired. COMPARISON: [facility], CR, XR FOOT RT MIN 3V, 09/08/2023, 8:02. FINDINGS: Bones: Ongoing healing of 5th metatarsal base fracture. Alignment is unchanged from prior. No suspicious bony lesions. Soft tissues: No tibiotalar joint effusion. Achilles tendon appears normal. IMPRESSION: Ongoing healing of 5th metatarsal base fracture. Dictated by: Carolin Jiang M.D. on 09/22/2023 at 13:56 Approved by: Carolin Jiang M.D. on 09/22/2023 at 13:57
--- NOTE | 2023-09-22 | DI.RAD.S_ITS ---
PROCEDURE: XR ANKLE RT MIN 3V INDICATIONS: ANKLE FX TECHNIQUE: 3 views of the ankle were acquired. COMPARISON: [facility], CR, XR ANKLE RT MIN 3V, 09/08/2023, 8:02. FINDINGS: Bones: Ongoing healing of lateral malleolar fracture in unchanged alignment. Ongoing healing of 5th metatarsal base fracture. No new fracture identified. Ankle mortise is intact. Soft tissues: No tibiotalar joint effusion. Achilles tendon appears normal. IMPRESSION: Ongoing healing of lateral malleolar and 5th metatarsal base fracture in stable alignment. Dictated by: Carolin Jiang M.D. on 09/22/2023 at 13:53 Approved by: Carolin Jiang M.D. on 09/22/2023 at 13:56
== END ==
PROVIDERS: PCP Family Medicine; Referring Provider Podiatrist; Visit Provider Podiatrist
DX: S82.61XD Displaced fracture of lateral malleolus of right fibula, subsequent encounter for closed fracture with routine healing (principal); S92.351D Displaced fracture of fifth metatarsal bone, right foot, subsequent encounter for fracture with routine healing; X58.XXXD Exposure to other specified factors, subsequent encounter
CPT/HCPCS: 73610; 73630

== ENCOUNTER → 2023-10-20 07:33 | Outpatient (CLI) | payer MEDICARE, SELFPAY ==
[2023-10-20 08:12] LABS: Add Manual Diff / Slide Review NO; Basophils Absolute Auto 200 /uL (0-100); Basophils Percent Auto 2.1 % (0-2); Eosinophils Absolute Auto 1800 /uL (0-450); Eosinophils Percent Auto 23.2 % (2-4); Hemoglobin 12.9 g/dL (12.0-16.0); Lymphocytes Absolute Auto 1900 /uL (1100-4500); Lymphocytes Percent Auto 24.3 % (25-40); Mean Corpuscular HGB Conc 33.1 % (30-36); Mean Corpuscular Hemoglobin 31.9 PG (26-34); Mean Corpuscular Volume 96.4 fL (80-100); Monocytes Absolute Auto 500 /uL (0-900); Monocytes Percent Auto 7.2 % (3-14); Neutrophils Absolute Auto 3300 /uL (1500-7000); Neutrophils Percent Auto 43.2 % (50-75); Platelet Count 367 X10^3/uL (150-400); Red Blood Cell Count 4.04 X10^6/uL (4.0-5.2); Red Cell Distribution Width 12.9 % (11.6-14.8); White Blood Cell Count 7.6 X10^3/uL (4.5-11.0)
[2023-10-20 09:28] LABS: Alanine Aminotransferase 38 IU/L (<35); Albumin 3.3 g/dL (3.5-5.0); Albumin Globulin Ratio 1.4 (1.0-2.8); Alkaline Phosphatase 50 U/L (38-126); Aspartate Aminotransferase 41 IU/L (14-36); BUN Creatinine Ratio 21.9 (6-22); Bilirubin Total 0.5 mg/dL (0.2-1.3); Blood Urea Nitrogen 16 mg/dL (7-17); Calcium 9.2 mg/dL (8.4-10.2); Carbon Dioxide 29 mmol/L (22-32); Chloride 101 mmol/L (98-107); Cholesterol 163 mg/dL (140-199); Estimated Glomerular Filt Rate > 60 mL/min (>60); Globulin 2.3 g/dL (1.7-4.1); Glucose 90 mg/dL (80-110); HDL Cholesterol 53 mg/dL (40-60); HEMOLYSIS < 15 (0-50); LDL Cholesterol Calculated 91 mg/dL (<100); Potassium 4.3 mmol/L (3.4-5.1); Sodium 135 mmol/L (137-145); Total Protein 5.6 g/dL (6.3-8.2); Triglycerides 97 mg/dL (35-150)
[2023-10-20 09:50] LABS: TSH w/ Reflex to FT4 2.45 uIU/mL (0.47-4.68)
[2023-10-20 10:21] LABS: Creatinine Urine Random 64.1 mg/dL
[2023-10-20 10:27] LABS: Microalbumin Urine Random < 0.6 mg/dL (0-1.6)
[2023-10-20 17:06] LABS: Hemoglobin A1C% w Est Avg Glu 5.6 % (4.0-6.0)
== END ==
PROVIDERS: PCP Family Medicine; Referring Provider Family Medicine; Visit Provider Family Medicine
DX: E78.5 Hyperlipidemia, unspecified (principal); E11.9 Type 2 diabetes mellitus without complications; E03.9 Hypothyroidism, unspecified; Z00.00 Encounter for general adult medical examination without abnormal findings
CPT/HCPCS: 36415; 80053; 80061; 82043; 82570; 83036; 84443; 85025

== ENCOUNTER → 2023-11-17 13:47 | Outpatient (CLI) | payer MEDICARE, SELFPAY ==
--- NOTE | 2023-11-17 13:54 | DI.RAD.S_ITS ---
PROCEDURE: XR ANKLE RT MIN 3V INDICATIONS: RIGHT ANKLE PAIN TECHNIQUE: 3 views of the ankle were acquired. COMPARISON: [facility], CR, XR FOOT RT MIN 3V, 09/22/2023, 10:17. [facility], CR, XR ANKLE RT MIN 3V, 09/22/2023, 10:17. FINDINGS: Bones: Stable alignment and continued interval healing of lateral malleolar fracture. Minimal residual lucency persists of 5th metatarsal base fracture. Soft tissues: No tibiotalar joint effusion. Achilles tendon appears normal. IMPRESSION: Continued healing with stable alignment of lateral malleolar fracture with minimal residual lucency of 5th metatarsal base fracture. Dictated by: Valeria Weiner M.D. on 11/17/2023 at 17:06 Approved by: Valeria Weiner M.D. on 11/17/2023 at 17:06
[2023-11-17 16:01] LABS: Add Manual Diff / Slide Review NO; Basophils Absolute Auto 100 /uL (0-100); Eosinophils Absolute Auto 800 /uL (0-450); Eosinophils Percent Auto 11.1 % (2-4); Hematocrit 40.6 % (36-46); Hemoglobin 13.5 g/dL (12.0-16.0); Lymphocytes Absolute Auto 1800 /uL (1100-4500); Lymphocytes Percent Auto 25.6 % (25-40); Mean Corpuscular HGB Conc 33.2 % (30-36); Mean Corpuscular Hemoglobin 32.1 PG (26-34); Mean Corpuscular Volume 96.5 fL (80-100); Monocytes Absolute Auto 500 /uL (0-900); Monocytes Percent Auto 7.1 % (3-14); Neutrophils Absolute Auto 3900 /uL (1500-7000); Neutrophils Percent Auto 55.2 % (50-75); Platelet Count 338 X10^3/uL (150-400); Red Blood Cell Count 4.21 X10^6/uL (4.0-5.2); Red Cell Distribution Width 12.3 % (11.6-14.8)
[2023-11-17 16:22] LABS: Alanine Aminotransferase 26 IU/L (<35); Albumin 4.1 g/dL (3.5-5.0); Albumin Globulin Ratio 1.5 (1.0-2.8); Alkaline Phosphatase 52 U/L (38-126); Aspartate Aminotransferase 33 IU/L (14-36); BUN Creatinine Ratio 27.4 (6-22); Bilirubin Total 0.5 mg/dL (0.2-1.3); Blood Urea Nitrogen 20 mg/dL (7-17); Carbon Dioxide 31 mmol/L (22-32); Chloride 101 mmol/L (98-107); Estimated Glomerular Filt Rate > 60 mL/min (>60); Globulin 2.7 g/dL (1.7-4.1); Glucose 76 mg/dL (80-110); HEMOLYSIS < 15 (0-50); Potassium 4.5 mmol/L (3.4-5.1); Sodium 139 mmol/L (137-145); Total Protein 6.8 g/dL (6.3-8.2)
== END ==
PROVIDERS: PCP Family Medicine; Referring Provider Podiatrist; Visit Provider Podiatrist
DX: S82.61XD Displaced fracture of lateral malleolus of right fibula, subsequent encounter for closed fracture with routine healing (principal); M25.571 Pain in right ankle and joints of right foot; E11.69 Type 2 diabetes mellitus with other specified complication; D72.10 Eosinophilia, unspecified; X58.XXXD Exposure to other specified factors, subsequent encounter
CPT/HCPCS: 36415; 73610; 80053; 85025

== ENCOUNTER 2024-03-20 13:45 | Outpatient (RCR) | payer MEDICARE, OTHER, SELFPAY ==
--- NOTE | 2024-02-01 16:29 | PT.OIE ---
Current Diagnoses Muscle weakness (generalized) (02/01/24) Other specified disorders of tendon, right ankle and foot (02/01/24) Unsteadiness on feet (02/01/24) Nondisplaced fracture of lateral malleolus of right fibula, initial encounter for closed fracture (02/01/24) Past Medical History (Last Updated 06/01/22 @ 07:07 by Artie Heaton MD) Breast cancer Diabetes mellitus History of right breast cancer (~2009) Hyperlipidemia Hypothyroidism Insomnia Osteopenia after menopause Past Surgical History (Last Reviewed 01/19/22 @ 18:22 by Tiff Mcallister DO) Anesthesia Hx of hysterectomy (~2007) S/P lumpectomy, right breast (~2009) Visit Care Team Role Provider Type Artie Heaton MD Family Provider Physician Primary Care Provider Specialty: Family Practice Address: [address] [place] [address], [id number] Email: [email or web address] Ivette Gipson DPM Attending Provider Non-Staff Referring Provider Specialty: Podiatry Address: [address] [place] [address], [id number] Email: Physical Therapy Initial Evaluation PT-OP-A Visit Information Start: 02/01/24 08:25 Freq: Status: Active Protocol: Document 02/01/24 15:23 [facility] (Rec: 02/01/24 16:29 [facility] [id number]) Out-Patient Physical Therapy Visit Information Visit Information Visit Type Initial Evaluation Visit Note 11/15 Visit Start Time 15:22 Visit Stop Time 16:05 Visit Number 1 Number of CONSTRUCTION CONTRACTOR Visits 0 PT-OP-B Current Condition Start: 02/01/24 08:25 Freq: Status: Active Protocol: Document 02/01/24 15:23 [facility] (Rec: 02/01/24 16:29 [facility] [id number]) Current Condition History of Current Condition Current Complaints early jul 2023 History of Current Condition Pt was sitting at her desk and R leg was asleep and went down and thought she had rolled her R ankle and did RICE and then got COVID so didn't get in to porcelain enamel repairer for 1 month Broke R foot and ankle. 6 weeks NWB w/boot then got out of the boot at [facility]. Has a throbbing especially in the evening. Got new hiking boots that are higher. Pain lat ankle and ant ankle. She was doing some PT at [facility] and it made it worse( about 1 month ago for a couple sessions). she did AROM exercises and what inc pain was the tband exercises. Has only cont ankle ABCs. pt hasn't been walking as much d/t weahter partly. Has been walking 3x/week for about 1.5-2 miles (does hike up [place]). Prior to pandemic walked 7 miles a day. Was walking 3 miles a day until she injured herself. She started walking again in Dec. Pt does have osteopenia. Has neuropathy for past 3 years. R foot feels stiffer now. Dr. Jean-Baptiste has her wearing a compression sleeve on foot and it inc her pain. Has compression socks and they are okay Prior Treatments and Tests Nov xray: IMPRESSION: Continued healing with stable alignment of lateral malleolar fracture with minimal residual lucency of 5th metatarsal base fracture. Sep xray IMPRESSION: Ongoing healing of 5th metatarsal base fracture. Treatment Goals Patient/Caregiver Goals return to walking a few miles a day. avoid ankle digressing PT-OP-C Subjective Start: 02/01/24 08:25 Freq: Status: Active Protocol: Document 02/01/24 15:23 [facility] (Rec: 02/01/24 16:29 [facility] [id number]) OP-PT Pain Assessment Location R ankle Pain Location Details lat foot & lat and ant ankle Description Aching,Throbbing Description- Other swollen: Frequency Intermittent Pain Aggravating Factors Stair Climbing Other Pain Aggravating Factors end of the day, too much activity, clean the house Pain Alleviating Factors Elevation Other Pain Alleviating Factors alieve PT-OP-D Balance Start: 02/01/24 08:25 Freq: Status: Active Protocol: Document 02/01/24 15:23 [facility] (Rec: 02/01/24 16:29 [facility] [id number]) Balance Tests Single Limb Standing Single Limb- Right 4 sec Single Limb- Left 4 sec PT-OP-F Manual Assessment Start: 02/01/24 08:25 Freq: Status: Active Protocol: Document 02/01/24 15:23 [facility] (Rec: 02/01/24 16:29 [facility] [id number]) Manual Assessments Soft Tissue Assessment Soft Tissue Mobility Assessment sm swelling around ATFL Joint Mobility Assessment Joint Mobility Assessment no loni tenderness but delayed throbbing lat 5th MT but goes away quick PT-OP-K Range of Motion Start: 02/01/24 08:25 Freq: Status: Active Protocol: Document 02/01/24 15:23 [facility] (Rec: 02/01/24 16:29 [facility] [id number]) Ankle and Foot Goniometric Range of Motion Ankle and Foot Right Active Dorsiflexion with Knee Flexed 8 Dorsiflexion with Knee Extended 2 Plantarflexion 57 Inversion 33 Eversion 20 Left Active Dorsiflexion with Knee Flexed 9 Dorsiflexion with Knee Extended 1 Plantarflexion 58 Inversion 38 Eversion 27 PT-OP-L Special Tests Start: 02/01/24 08:25 Freq: Status: Active Protocol: Document 02/01/24 15:23 [facility] (Rec: 02/01/24 16:29 [facility] [id number]) Special Tests Foot/Ankle Special Tests Anterior Draw Comments positive r Talor Tilt Comments positive R PT-OP-M Strength Start: 02/01/24 08:25 Freq: Status: Active Protocol: Document 02/01/24 15:23 [facility] (Rec: 02/01/24 16:29 [facility] [id number]) Hip Strength Hip Manual Muscle Testing Right Flexion (L2) 4- Good- Extension (S1) 5 Normal Abduction 5 Normal External Rotation 5 Normal Internal Rotation 5 Normal Left Flexion (L2) 4 Good Extension (S1) 5 Normal Abduction 5 Normal External Rotation 4 Good Internal Rotation 5 Normal Knee Strength Knee Manual Muscle Testing Right Flexion (S2) 5 Normal Extension (L3) 5 Normal Left Flexion (S2) 5 Normal Extension (L3) 5 Normal Ankle/Foot Strength Ankle and Foot Manual Muscle Testing Right Dorsiflexion (L4) 4- Good- Plantarflexion (S1) 5 Normal Inversion 4 Good Eversion (S1) 4- Good- Left Dorsiflexion (L4) 5 Normal Plantarflexion (S1) 5 Normal Inversion 5 Normal Eversion (S1) 5 Normal Comments 20 heel raises B Toe Strength Toe Manual Muscle Testing Right 2nd Toe Flexion 4+ Good+ Extension 4+ Good+ Right Great Toe Flexion 4+ Good+ Extension 4+ Good+ Left 2nd Toe Flexion 4 Good Extension 3+ Fair+ Comments 2-5 Left Great Toe Flexion 4 Good Extension 4 Good PT-OP-Q Treatments Start: 02/01/24 08:25 Freq: Status: Active Protocol: Document 02/01/24 15:23 [facility] (Rec: 02/01/24 16:29 [facility] [id number]) Self-Care/Home Management Treatment Education Other Education 9 min: discussed w/pt that routine healing for fx is normally within 3 months which is liekly why her porcelain enamel repairer was concerned about lack of full healing w/recent xray in Nov; discussed postive talar tilt and ant drawer tests for laxity which indicates possible ligamentous injury also. Discussed lack of calf mobility B is important to work on; edu to drink water in response to pt c/o cramping in B ant tib region PT-OP-T Assessment and Plan Start: 02/01/24 08:25 Freq: Status: Active Protocol: Document 02/01/24 15:23 [facility] (Rec: 02/01/24 16:29 [facility] [id number]) Physical Therapy Assessment Rehab Potential Rehabilitation Potential Good Evaluation Complexity Number of Personal Factors/Comorbidities 1-2 Number of Body Systems Impaired 4 or More Clinical Presentation at Evaluation Evolving Impairments Impairments Activity Tolerance,Balance, Functional Activities, Functional Mobility,Gait,Pain, Posture,ROM,Soft Tissue Mobility,Strength Goals activity Assisted Goal (LTG) Pt will be able to return to walking daily of 3 miles w/o inc pain in R ankle greater than 1/10 LTG Duration 04/25 strength Short Term Goal (STG) Pt will be indep w/HEP STG Duration 03/06/24 Litigation Manager Goal (LTG) pt will score 5/5 on R ankle strength to show improved stability of ankle and dec risk for further injury LTG Duration 04/25/24 balance Impairment 3 sec SLS B Short Term Goal (STG) Pt will improve SLS to at least 5 sec to show improved balance. STG Duration 03/15/24 Litigation Manager Goal (LTG) Pt will improve SLS to at least 5 sec to show improved balance. LTG Duration 04/25/24 Assessment Summary Assessment Pt presents w/R ankle pain w/ hx of R fib and 5th MT in early Jul 2023 w/xrays in Nov showing good alignment but continued healing still occuring at that time. Pt was seen at another PT office for only a couple of visits 1 month ago, but had inc pain w/ tband exercises and her porcelain enamel repairer sent her here instead. She does have inc laxity noted w/both talar tilt and ant drawer test likely causing inc pain and instability in ankle. Progression w/resistance will have to be slow d/t adverse response in past. Pt would benefit from skilled PT to dec R foot stiffness and improve pain , strength and mobility of ankle. Physical Therapy Plan Frequency and Duration Frequency of Treatment 1-2x/wk Duration of treatment (weeks) 12 Plan of Care Start Date 02/01/24 Plan of Care End Date 04/25/24 Therapeutic Interventions Therapeutic Interventions Balance Training,Gait Training ,Home Exercise Program,Joint Mobilizations,Manual Therapy, Neuromuscular Re-education, Orthotic/Prosthetic Management ,Patient/Caregiver Education, Self-Care/Home Management,Soft Tissue Mobilization,Taping, Therapeutic Activities, Therapeutic Exercises Modalities Cold Pack/Ice Massage,Electric Stimulation,Hot Packs, Infrared Therapy,Ultrasound Next Visit Focus/Plan Next Note Type Treatment Note Next Visit Plan DL balance on uneven surfaces (monitor for pain); tandem stance balance w/rail, calf stretches, ankle isometrics ( DF, inversion, eversion) Avoid Tband strength until later in PT manual to calf, gentle calc distraction
--- NOTE | 2024-02-01 16:29 | PT.OPPOC ---
Physical, Occupational & Speech Therapy At [facility] Current Diagnoses Muscle weakness (generalized) (02/01/24) Other specified disorders of tendon, right ankle and foot (02/01/24) Unsteadiness on feet (02/01/24) Nondisplaced fracture of lateral malleolus of right fibula, initial encounter for closed fracture (02/01/24) Visit Care Team Role Provider Type Artie Heaton MD Family Provider Physician Primary Care Provider Specialty: Family Practice Address: [address] [place] [address], [id number] Email: [email or web address] Ivette Gipson DPM Attending Provider Non-Staff Referring Provider Specialty: Podiatry Address: [address] [place] [address], [id number] Email: Plan Of Care PT-OP-T Assessment and Plan Start: 02/01/24 08:25 Freq: Status: Active Protocol: Document 02/01/24 15:23 [facility] (Rec: 02/01/24 16:29 [facility] [id number]) Physical Therapy Assessment Rehab Potential Rehabilitation Potential Good Evaluation Complexity Number of Personal Factors/Comorbidities 1-2 Number of Body Systems Impaired 4 or More Clinical Presentation at Evaluation Evolving Impairments Impairments Activity Tolerance,Balance, Functional Activities, Functional Mobility,Gait,Pain, Posture,ROM,Soft Tissue Mobility,Strength Goals activity On Air Host Goal (LTG) Pt will be able to return to walking daily of 3 miles w/o inc pain in R ankle greater than 1/10 LTG Duration 04/25 strength Short Term Goal (STG) Pt will be indep w/HEP STG Duration 03/06/24 On Air Host Goal (LTG) pt will score 5/5 on R ankle strength to show improved stability of ankle and dec risk for further injury LTG Duration 04/25/24 balance Impairment 3 sec SLS B Short Term Goal (STG) Pt will improve SLS to at least 5 sec to show improved balance. STG Duration 03/15/24 Half-Way Goal (LTG) Pt will improve SLS to at least 5 sec to show improved balance. LTG Duration 04/25/24 Assessment Summary Assessment Pt presents w/R ankle pain w/ hx of R fib and 5th MT in early Jul 2023 w/xrays in Nov showing good alignment but continued healing still occuring at that time. Pt was seen at another PT office for only a couple of visits 1 month ago, but had inc pain w/ tband exercises and her freelance photographer sent her here instead. She does have inc laxity noted w/both talar tilt and ant drawer test likely causing inc pain and instability in ankle. Progression w/resistance will have to be slow d/t adverse response in past. Pt would benefit from skilled PT to dec R foot stiffness and improve pain , strength and mobility of ankle. Physical Therapy Plan Frequency and Duration Frequency of Treatment 1-2x/wk Duration of treatment (weeks) 12 Plan of Care Start Date 02/01/24 Plan of Care End Date 04/25/24 Therapeutic Interventions Therapeutic Interventions Balance Training,Gait Training ,Home Exercise Program,Joint Mobilizations,Manual Therapy, Neuromuscular Re-education, Orthotic/Prosthetic Management ,Patient/Caregiver Education, Self-Care/Home Management,Soft Tissue Mobilization,Taping, Therapeutic Activities, Therapeutic Exercises Modalities Cold Pack/Ice Massage,Electric Stimulation,Hot Packs, Infrared Therapy,Ultrasound Next Visit Focus/Plan Next Note Type Treatment Note Next Visit Plan DL balance on uneven surfaces (monitor for pain); tandem stance balance w/rail, calf stretches, ankle isometrics ( DF, inversion, eversion) Avoid Tband strength until later in PT manual to calf, gentle calc distraction Plan of Care Dates Plan of Care Start Date 02/01/24 Plan of Care End Date 04/25/24 Electronically Signed by: Marycruz Olmedo, PT 02/01/24 [id number] If you are in agreement with this Plan of Care, please return a signed and dated copy. I have reviewed this Plan of Care and certify that the skilled therapy services above are required to meet the patient?s needs. Physician Signature Date Printed Name and Credentials Clinical Instructor Signature Printed Name and Credentials
--- NOTE | 2024-02-15 09:04 | PT.OTN ---
Current Diagnoses Muscle weakness (generalized) (02/15/24) Other specified disorders of tendon, right ankle and foot (02/15/24) Unsteadiness on feet (02/15/24) Nondisplaced fracture of lateral malleolus of right fibula, initial encounter for closed fracture (02/15/24) Physical Therapy Treatment Note PT-OP-A Visit Information Start: 02/01/24 08:25 Freq: Status: Active Protocol: Document 02/15/24 08:18 [facility] (Rec: 02/15/24 09:04 [facility] [id number]) Out-Patient Physical Therapy Visit Information Visit Information Visit Type Treatment Note Visit Note 12/16 Visit Start Time 08:18 Visit Stop Time 08:59 Visit Number 2 Number of STAFF FORESTER Visits 0 PT-OP-B Current Condition Start: 02/01/24 08:25 Freq: Status: Active Protocol: Document 02/01/24 15:23 [facility] (Rec: 02/01/24 16:29 [facility] [id number]) Current Condition History of Current Condition Current Complaints early jul 2023 History of Current Condition Pt was sitting at her desk and R leg was asleep and went down and thought she had rolled her R ankle and did RICE and then got COVID so didn't get in to town administrator for 1 month Broke R foot and ankle. 6 weeks NWB w/boot then got out of the boot at [facility]. Has a throbbing especially in the evening. Got new hiking boots that are higher. Pain lat ankle and ant ankle. She was doing some PT at [facility] and it made it worse( about 1 month ago for a couple sessions). she did AROM exercises and what inc pain was the tband exercises. Has only cont ankle ABCs. pt hasn't been walking as much d/t weahter partly. Has been walking 3x/week for about 1.5-2 miles (does hike [place] Prior to walked 7 miles a day. Was walking 3 miles a day until she injured herself. She started walking again in Dec. Pt does have osteopenia. Has neuropathy for past 3 years. R foot feels stiffer now. Dr. Jean-Baptiste has her wearing a compression sleeve on foot and it inc her pain. Has compression socks and they are okay Prior Treatments and Tests Travis xray: IMPRESSION: Continued healing with stable alignment of lateral malleolar fracture with minimal residual lucency of 5th metatarsal base fracture. Nov xray IMPRESSION: Ongoing healing of 5th metatarsal base fracture. Treatment Goals Patient/Caregiver Goals return to walking a few miles a day. avoid ankle digressing PT-OP-C Subjective Start: 02/01/24 08:25 Freq: Status: Active Protocol: Document 02/15/24 08:18 [facility] (Rec: 02/15/24 09:04 [facility] [id number]) OP-PT Subjective Patient Comments Patient Comments pt reports beign a little sore after eval PT-OP-D Balance Start: 02/01/24 08:25 Freq: Status: Active Protocol: Document 02/01/24 15:23 [facility] (Rec: 02/01/24 16:29 [facility] [id number]) Balance Tests Single Limb Standing Single Limb- Right 4 sec Single Limb- Left 4 sec PT-OP-F Manual Assessment Start: 02/01/24 08:25 Freq: Status: Active Protocol: Document 02/01/24 15:23 [facility] (Rec: 02/01/24 16:29 [facility] [id number]) Manual Assessments Soft Tissue Assessment Soft Tissue Mobility Assessment sm swelling around ATFL Joint Mobility Assessment Joint Mobility Assessment no loni tenderness but delayed throbbing lat 5th MT but goes away quick PT-OP-K Range of Motion Start: 02/01/24 08:25 Freq: Status: Active Protocol: Document 02/01/24 15:23 [facility] (Rec: 02/01/24 16:29 [facility] [id number]) Ankle and Foot Goniometric Range of Motion Ankle and Foot Right Active Dorsiflexion with Knee Flexed 8 Dorsiflexion with Knee Extended 2 Plantarflexion 57 Inversion 33 Eversion 20 Left Active Dorsiflexion with Knee Flexed 9 Dorsiflexion with Knee Extended 1 Plantarflexion 58 Inversion 38 Eversion 27 PT-OP-L Special Tests Start: 02/01/24 08:25 Freq: Status: Active Protocol: Document 02/01/24 15:23 [facility] (Rec: 02/01/24 16:29 [facility] [id number]) Special Tests Foot/Ankle Special Tests Anterior Draw Comments positive r Talor Tilt Comments positive R PT-OP-M Strength Start: 02/01/24 08:25 Freq: Status: Active Protocol: Document 02/01/24 15:23 [facility] (Rec: 02/01/24 16:29 [facility] [id number]) Hip Strength Hip Manual Muscle Testing Right Flexion (L2) 4- Good- Extension (S1) 5 Normal Abduction 5 Normal External Rotation 5 Normal Internal Rotation 5 Normal Left Flexion (L2) 4 Good Extension (S1) 5 Normal Abduction 5 Normal External Rotation 4 Good Internal Rotation 5 Normal Knee Strength Knee Manual Muscle Testing Right Flexion (S2) 5 Normal Extension (L3) 5 Normal Left Flexion (S2) 5 Normal Extension (L3) 5 Normal Ankle/Foot Strength Ankle and Foot Manual Muscle Testing Right Dorsiflexion (L4) 4- Good- Plantarflexion (S1) 5 Normal Inversion 4 Good Eversion (S1) 4- Good- Left Dorsiflexion (L4) 5 Normal Plantarflexion (S1) 5 Normal Inversion 5 Normal Eversion (S1) 5 Normal Comments 20 heel raises B Toe Strength Toe Manual Muscle Testing Right 2nd Toe Flexion 4+ Good+ Extension 4+ Good+ Right Great Toe Flexion 4+ Good+ Extension 4+ Good+ Left 2nd Toe Flexion 4 Good Extension 3+ Fair+ Comments 2-5 Left Great Toe Flexion 4 Good Extension 4 Good PT-OP-Q Treatments Start: 02/01/24 08:25 Freq: Status: Active Protocol: Document 02/15/24 08:18 [facility] (Rec: 02/15/24 09:04 [facility] [id number]) Therapeutic Exercises Sitting Exercises isometrics Sitting Exercise Name 1. DF 2. Inversion 3. eversion Side right Reps/Minutes 5sec x5 ea Standing Exercises calf stretch Standing Exercise Name 1. gastroc 2. soleus Side right Reps/Minutes 30 sec ea heel raises Standing Exercise Name DL Side bilateral Reps/Minutes 10 Manual Therapy Treatment Soft Tissue Mobilization plantar fascia Body Location R Mobilization Type Rolling Intensity/Depth Moderate Body Position Supine calf Body Location R Mobilization Type Rolling Intensity/Depth Moderate Comments w/APs Neuro Re-Education Treatment Balance Activities tilt board Comments 1. fwd/back balance 2. fwd/back wt shifts 3. lat balance 4. lat wt shifts foam Details EC & head turns Surface blue foam Comments WBOS & NBOS tandem Comments 1.tandem balance b trials 2. semi tandem EC B 3. walk 15ft x2 PT-OP-T Assessment and Plan Start: 02/01/24 08:25 Freq: Status: Active Protocol: Document 02/15/24 08:18 [facility] (Rec: 02/15/24 09:04 [facility] [id number]) Physical Therapy Assessment Goals activity Detention Goal (LTG) Pt will be able to return to walking daily of 3 miles w/o inc pain in R ankle greater than 1/10 LTG Duration 04/25 strength Short Term Goal (STG) Pt will be indep w/HEP STG Duration 03/06/24 Truck Driver Supervisor Goal (LTG) pt will score 5/5 on R ankle strength to show improved stability of ankle and dec risk for further injury LTG Duration 04/25/24 balance Impairment 3 sec SLS B Short Term Goal (STG) Pt will improve SLS to at least 5 sec to show improved balance. STG Duration 03/15/24 Detention Goal (LTG) Pt will improve SLS to at least 5 sec to show improved balance. LTG Duration 04/25/24 Assessment Summary Assessment Pt reports she does note some mild tightness at the end of session and encouraged to ice and also slowly add exercises back in tomorrow if painful today. Physical Therapy Plan Next Visit Focus/Plan Next Note Type Treatment Note Next Visit Plan review: DL balance on uneven surfaces (monitor for pain); tandem stance balance w/rail, calf stretches, ankle isometrics (DF, inversion, eversion) Avoid Tband strength until later in PT manual to calf, gentle calc distraction
--- NOTE | 2024-02-19 12:29 | PT.OTN ---
Current Diagnoses Muscle weakness (generalized) (02/19/24) Other specified disorders of tendon, right ankle and foot (02/19/24) Unsteadiness on feet (02/19/24) Nondisplaced fracture of lateral malleolus of right fibula, initial encounter for closed fracture (02/19/24) Physical Therapy Treatment Note PT-OP-A Visit Information Start: 02/01/24 08:25 Freq: Status: Active Protocol: Document 02/19/24 11:19 [facility] (Rec: 02/19/24 12:29 [facility] [id number]) Out-Patient Physical Therapy Visit Information Visit Information Visit Type Treatment Note Visit Note 01/13 Visit Start Time 11:18 Visit Stop Time 12:00 Visit Number 3 Number of GEOLOGY ASSOCIATE Visits 0 PT-OP-B Current Condition Start: 02/01/24 08:25 Freq: Status: Active Protocol: Document 02/01/24 15:23 [facility] (Rec: 02/01/24 16:29 [facility] [id number]) Current Condition History of Current Condition Current Complaints early jul 2023 History of Current Condition Pt was sitting at her desk and R leg was asleep and went down and thought she had rolled her R ankle and did RICE and then got COVID so didn't get in to dismantler for 1 month Broke R foot and ankle. 6 weeks NWB w/boot then got out of the boot at [facility]. Has a throbbing especially in the evening. Got new hiking boots that are higher. Pain lat ankle and ant ankle. She was doing some PT at [facility] and it made it worse( about 1 month ago for a couple sessions). she did AROM exercises and what inc pain was the tband exercises. Has only cont ankle ABCs. pt hasn't been walking as much d/t weahter partly. Has been walking 3x/week for about 1.5-2 miles (does hike [place] Prior to walked 7 miles a day. Was walking 3 miles a day until she injured herself. She started walking again in Dec. Pt does have osteopenia. Has neuropathy for past 3 years. R foot feels stiffer now. Dr. Jean-Baptiste has her wearing a compression sleeve on foot and it inc her pain. Has compression socks and they are okay Prior Treatments and Tests Travis xray: IMPRESSION: Continued healing with stable alignment of lateral malleolar fracture with minimal residual lucency of 5th metatarsal base fracture. Nov xray IMPRESSION: Ongoing healing of 5th metatarsal base fracture. Treatment Goals Patient/Caregiver Goals return to walking a few miles a day. avoid ankle digressing PT-OP-C Subjective Start: 02/01/24 08:25 Freq: Status: Active Protocol: Document 02/19/24 11:19 [facility] (Rec: 02/19/24 12:29 [facility] [id number]) OP-PT Subjective Patient Comments Patient Comments Pt felt okay and was a little sore monday evening. She cont exercises. She had a couple questions w/exercises. She was sore yesterday ( swollen and stiff) w/drive to/ from [place]. PT-OP-D Balance Start: 02/01/24 08:25 Freq: Status: Active Protocol: Document 02/01/24 15:23 [facility] (Rec: 02/01/24 16:29 [facility] [id number]) Balance Tests Single Limb Standing Single Limb- Right 4 sec Single Limb- Left 4 sec PT-OP-F Manual Assessment Start: 02/01/24 08:25 Freq: Status: Active Protocol: Document 02/01/24 15:23 [facility] (Rec: 02/01/24 16:29 [facility] [id number]) Manual Assessments Soft Tissue Assessment Soft Tissue Mobility Assessment sm swelling around ATFL Joint Mobility Assessment Joint Mobility Assessment no loni tenderness but delayed throbbing lat 5th MT but goes away quick PT-OP-K Range of Motion Start: 02/01/24 08:25 Freq: Status: Active Protocol: Document 02/01/24 15:23 [facility] (Rec: 02/01/24 16:29 [facility] [id number]) Ankle and Foot Goniometric Range of Motion Ankle and Foot Right Active Dorsiflexion with Knee Flexed 8 Dorsiflexion with Knee Extended 2 Plantarflexion 57 Inversion 33 Eversion 20 Left Active Dorsiflexion with Knee Flexed 9 Dorsiflexion with Knee Extended 1 Plantarflexion 58 Inversion 38 Eversion 27 PT-OP-L Special Tests Start: 02/01/24 08:25 Freq: Status: Active Protocol: Document 02/01/24 15:23 [facility] (Rec: 02/01/24 16:29 [facility] [id number]) Special Tests Foot/Ankle Special Tests Anterior Draw Comments positive r Talor Tilt Comments positive R PT-OP-M Strength Start: 02/01/24 08:25 Freq: Status: Active Protocol: Document 02/01/24 15:23 [facility] (Rec: 02/01/24 16:29 [facility] [id number]) Hip Strength Hip Manual Muscle Testing Right Flexion (L2) 4- Good- Extension (S1) 5 Normal Abduction 5 Normal External Rotation 5 Normal Internal Rotation 5 Normal Left Flexion (L2) 4 Good Extension (S1) 5 Normal Abduction 5 Normal External Rotation 4 Good Internal Rotation 5 Normal Knee Strength Knee Manual Muscle Testing Right Flexion (S2) 5 Normal Extension (L3) 5 Normal Left Flexion (S2) 5 Normal Extension (L3) 5 Normal Ankle/Foot Strength Ankle and Foot Manual Muscle Testing Right Dorsiflexion (L4) 4- Good- Plantarflexion (S1) 5 Normal Inversion 4 Good Eversion (S1) 4- Good- Left Dorsiflexion (L4) 5 Normal Plantarflexion (S1) 5 Normal Inversion 5 Normal Eversion (S1) 5 Normal Comments 20 heel raises B Toe Strength Toe Manual Muscle Testing Right 2nd Toe Flexion 4+ Good+ Extension 4+ Good+ Right Great Toe Flexion 4+ Good+ Extension 4+ Good+ Left 2nd Toe Flexion 4 Good Extension 3+ Fair+ Comments 2-5 Left Great Toe Flexion 4 Good Extension 4 Good PT-OP-Q Treatments Start: 02/01/24 08:25 Freq: Status: Active Protocol: Document 02/19/24 11:19 [facility] (Rec: 02/19/24 12:29 [facility] [id number]) Therapeutic Exercises Sitting Exercises isometrics Sitting Exercise Name 1. DF 2. Inversion 3. eversion Side right Reps/Minutes 5sec x2 ea Standing Exercises calf stretch Standing Exercise Name 1. gastroc 2. soleus Side right Reps/Minutes 30 sec ea Manual Therapy Treatment Soft Tissue Mobilization calf Body Location R soleus, gastroc, achilles Mobilization Type Rolling Intensity/Depth Moderate Comments w/APs Joint Mobilizations midfoot Comments gentle pronation/supination stretching talus Joint R Grade II Comments distraction calcaneus Joint R Grade II Comments distraction Neuro Re-Education Treatment Balance Activities SLS Comments 1. alt march on blue foam x12 B 2. ball roll fwd/back x12 B mod SLS tilt board Comments 1. fwd/back balance (head turns & EC trials) 2. fwd/back wt shifts 3. lat balance (head turns & EC trials) 4. lat wt shifts foam Details EC & head turns Surface blue foam Comments WBOS & NBOS tandem Comments 1.tandem balance b trials w/ head turns 2. walk 15ft x2 PT-OP-T Assessment and Plan Start: 02/01/24 08:25 Freq: Status: Active Protocol: Document 02/19/24 11:19 [facility] (Rec: 02/19/24 12:29 [facility] [id number]) Physical Therapy Assessment Goals activity It Integration Architect Goal (LTG) Pt will be able to return to walking daily of 3 miles w/o inc pain in R ankle greater than 1/10 LTG Duration 04/25 strength Short Term Goal (STG) Pt will be indep w/HEP STG Duration 03/06/24 It Integration Architect Goal (LTG) pt will score 5/5 on R ankle strength to show improved stability of ankle and dec risk for further injury LTG Duration 04/25/24 balance Impairment 3 sec SLS B Short Term Goal (STG) Pt will improve SLS to at least 5 sec to show improved balance. STG Duration 03/15/24 It Integration Architect Goal (LTG) Pt will improve SLS to at least 5 sec to show improved balance. LTG Duration 04/25/24 Assessment Summary Assessment Pt tolerated balance and exercises well and did well with HEP with min cues needed for DF isometric exercise. Improving DF ROM Physical Therapy Plan Frequency and Duration Frequency of Treatment 1-2x/wk Duration of treatment (weeks) 12 Plan of Care Start Date 02/01/24 Plan of Care End Date 04/25/24 Next Visit Focus/Plan Next Note Type Treatment Note Next Visit Plan review: isometric DF; if able try to progress to resisted inv/eversion cont gentle manual for ankle and foot mobility and advance balance
--- NOTE | 2024-02-22 12:17 | PT.OTN ---
Current Diagnoses Muscle weakness (generalized) (02/22/24) Other specified disorders of tendon, right ankle and foot (02/22/24) Unsteadiness on feet (02/22/24) Nondisplaced fracture of lateral malleolus of right fibula, initial encounter for closed fracture (02/22/24) Physical Therapy Treatment Note PT-OP-A Visit Information Start: 02/01/24 08:25 Freq: Status: Active Protocol: Document 02/22/24 11:20 [facility] (Rec: 02/22/24 12:17 [facility] [id number]) Out-Patient Physical Therapy Visit Information Visit Information Visit Type Treatment Note Visit Note 02/13 Visit Start Time 11:20 Visit Stop Time 12:00 Visit Number 4 Number of STATISTICAL CONSULTANT Visits 0 PT-OP-B Current Condition Start: 02/01/24 08:25 Freq: Status: Active Protocol: Document 02/01/24 15:23 [facility] (Rec: 02/01/24 16:29 [facility] [id number]) Current Condition History of Current Condition Current Complaints early jul 2023 History of Current Condition Pt was sitting at her desk and R leg was asleep and went down and thought she had rolled her R ankle and did RICE and then got COVID so 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 6 weeks NWB w/boot then got out of the boot at [facility]. Has a throbbing especially in the evening. Got new hiking boots that are higher. Pain lat ankle and ant ankle. She was doing some PT at [facility] and it made it worse( about 1 month ago for a couple sessions). she did AROM exercises and what inc pain was the tband exercises. Has only cont ankle ABCs. pt hasn't been walking as much d/t weahter partly. Has been walking 3x/week for about 1.5-2 miles (does hike [place] Prior to walked 7 miles a day. Was walking 3 miles a day until she injured herself. She started walking again in Dec. Pt does have osteopenia. Has neuropathy for past 3 years. R foot feels stiffer now. Dr. Jean-Baptiste has her wearing a compression sleeve on foot and it inc her pain. Has compression socks and they are okay Prior Treatments and Tests Travis xray: IMPRESSION: Continued healing with stable alignment of lateral malleolar fracture with minimal residual lucency of 5th metatarsal base fracture. Sep xray IMPRESSION: Ongoing healing of 5th metatarsal base fracture. Treatment Goals Patient/Caregiver Goals return to walking a few miles a day. avoid ankle digressing PT-OP-C Subjective Start: 02/01/24 08:25 Freq: Status: Active Protocol: Document 02/22/24 11:20 [facility] (Rec: 02/22/24 12:17 [facility] [id number]) OP-PT Subjective Patient Comments Patient Comments Pt reports was fine monday and monday and mon when got to the isometrics and after felt them. By that night, it was gone. Has not had pain at night htis week. Patient Reported Progress Improving PT-OP-D Balance Start: 02/01/24 08:25 Freq: Status: Active Protocol: Document 02/01/24 15:23 [facility] (Rec: 02/01/24 16:29 [facility] [id number]) Balance Tests Single Limb Standing Single Limb- Right 4 sec Single Limb- Left 4 sec PT-OP-F Manual Assessment Start: 02/01/24 08:25 Freq: Status: Active Protocol: Document 02/01/24 15:23 [facility] (Rec: 02/01/24 16:29 [facility] [id number]) Manual Assessments Soft Tissue Assessment Soft Tissue Mobility Assessment sm swelling around ATFL Joint Mobility Assessment Joint Mobility Assessment no loni tenderness but delayed throbbing lat 5th MT but goes away quick PT-OP-K Range of Motion Start: 02/01/24 08:25 Freq: Status: Active Protocol: Document 02/01/24 15:23 [facility] (Rec: 02/01/24 16:29 [facility] [id number]) Ankle and Foot Goniometric Range of Motion Ankle and Foot Right Active Dorsiflexion with Knee Flexed 8 Dorsiflexion with Knee Extended 2 Plantarflexion 57 Inversion 33 Eversion 20 Left Active Dorsiflexion with Knee Flexed 9 Dorsiflexion with Knee Extended 1 Plantarflexion 58 Inversion 38 Eversion 27 PT-OP-L Special Tests Start: 02/01/24 08:25 Freq: Status: Active Protocol: Document 02/01/24 15:23 [facility] (Rec: 02/01/24 16:29 [facility] [id number]) Special Tests Foot/Ankle Special Tests Anterior Draw Comments positive r Talor Tilt Comments positive R PT-OP-M Strength Start: 02/01/24 08:25 Freq: Status: Active Protocol: Document 02/01/24 15:23 [facility] (Rec: 02/01/24 16:29 [facility] [id number]) Hip Strength Hip Manual Muscle Testing Right Flexion (L2) 4- Good- Extension (S1) 5 Normal Abduction 5 Normal External Rotation 5 Normal Internal Rotation 5 Normal Left Flexion (L2) 4 Good Extension (S1) 5 Normal Abduction 5 Normal External Rotation 4 Good Internal Rotation 5 Normal Knee Strength Knee Manual Muscle Testing Right Flexion (S2) 5 Normal Extension (L3) 5 Normal Left Flexion (S2) 5 Normal Extension (L3) 5 Normal Ankle/Foot Strength Ankle and Foot Manual Muscle Testing Right Dorsiflexion (L4) 4- Good- Plantarflexion (S1) 5 Normal Inversion 4 Good Eversion (S1) 4- Good- Left Dorsiflexion (L4) 5 Normal Plantarflexion (S1) 5 Normal Inversion 5 Normal Eversion (S1) 5 Normal Comments 20 heel raises B Toe Strength Toe Manual Muscle Testing Right 2nd Toe Flexion 4+ Good+ Extension 4+ Good+ Right Great Toe Flexion 4+ Good+ Extension 4+ Good+ Left 2nd Toe Flexion 4 Good Extension 3+ Fair+ Comments 2-5 Left Great Toe Flexion 4 Good Extension 4 Good PT-OP-Q Treatments Start: 02/01/24 08:25 Freq: Status: Active Protocol: Document 02/22/24 11:20 [facility] (Rec: 02/22/24 12:17 [facility] [id number]) Gym Equipment Shuttle Balance red clips Comments fwd: WBOS & NBOS side: WBOS Therapeutic Exercises Standing Exercises DF Side right Reps/Minutes 15 Manual Therapy Treatment Soft Tissue Mobilization calf Body Location R soleus, gastroc, achilles Mobilization Type Rolling Intensity/Depth Moderate Comments w/APs Joint Mobilizations talus Joint R Grade II Comments distraction, med FM calcaneus Joint R Grade II Comments distraction & lat glide and gapping Neuro Re-Education Treatment Balance Activities SLS Comments 1. alt march on blue foam x12 B 2. ball roll fwd/back x12 B mod SLS tilt board Comments 1. fwd/back balance (head turns & EC trials) 2. fwd/back wt shifts 3. lat balance (head turns & EC trials) 4. lat wt shifts foam Details EC & head turns Surface blue foam Comments WBOS & NBOS & staggered stance PT-OP-T Assessment and Plan Start: 02/01/24 08:25 Freq: Status: Active Protocol: Document 02/22/24 11:20 [facility] (Rec: 02/22/24 12:17 [facility] [id number]) Physical Therapy Assessment Goals activity Halfway Goal (LTG) Pt will be able to return to walking daily of 3 miles w/o inc pain in R ankle greater than 1/10 LTG Duration 04/25 strength Short Term Goal (STG) Pt will be indep w/HEP STG Duration 03/06/24 Halfway Goal (LTG) pt will score 5/5 on R ankle strength to show improved stability of ankle and dec risk for further injury LTG Duration 04/25/24 balance Impairment 3 sec SLS B Short Term Goal (STG) Pt will improve SLS to at least 5 sec to show improved balance. STG Duration 03/15/24 Gang Rider Goal (LTG) Pt will improve SLS to at least 5 sec to show improved balance. LTG Duration 04/25/24 Assessment Summary Assessment Pt did well with advanced balance and cont to improve DF ROM. Adjusted DF exercsie to standing AROM which pt tolerated better. Physical Therapy Plan Frequency and Duration Frequency of Treatment 1-2x/wk Duration of treatment (weeks) 12 Plan of Care Start Date 02/01/24 Plan of Care End Date 04/25/24 Next Visit Focus/Plan Next Note Type Treatment Note Next Visit Plan review:at wall DF; if able try to progress to resisted inv/ eversion cont gentle manual for ankle and foot mobility and advance balance
--- NOTE | 2024-02-26 15:22 | PT.OTN ---
Current Diagnoses Muscle weakness (generalized) (02/26/24) Other specified disorders of tendon, right ankle and foot (02/26/24) Unsteadiness on feet (02/26/24) Nondisplaced fracture of lateral malleolus of right fibula, initial encounter for closed fracture (02/26/24) Physical Therapy Treatment Note PT-OP-A Visit Information Start: 02/01/24 08:25 Freq: Status: Active Protocol: Document 02/26/24 14:36 [facility] (Rec: 02/26/24 15:22 [facility] [id number]) Out-Patient Physical Therapy Visit Information Visit Information Visit Type Treatment Note Visit Note 03/15 Visit Start Time 14:36 Visit Stop Time 15:16 Visit Number 5 Number of OVAL OR CIRCULAR GLASS CUTTER Visits 0 PT-OP-B Current Condition Start: 02/01/24 08:25 Freq: Status: Active Protocol: Document 02/01/24 15:23 [facility] (Rec: 02/01/24 16:29 [facility] [id number]) Current Condition History of Current Condition Current Complaints early jul 2023 History of Current Condition Pt was sitting at her desk and R leg was asleep and went down and thought she had rolled her R ankle and did RICE and then got COVID so didn't get in to can cleaner for 1 month Broke R foot and ankle. 6 weeks NWB w/boot then got out of the boot at [facility]. Has a throbbing especially in the evening. Got new hiking boots that are higher. Pain lat ankle and ant ankle. She was doing some PT at [facility] and it made it worse( about 1 month ago for a couple sessions). she did AROM exercises and what inc pain was the tband exercises. Has only cont ankle ABCs. pt hasn't been walking as much d/t weahter partly. Has been walking 3x/week for about 1.5-2 miles (does hike up [place]). Prior to walked 7 miles a day. Was walking 3 miles a day until she injured herself. She started walking again in Dec. Pt does have osteopenia. Has neuropathy for past 3 years. R foot feels stiffer now. Dr. Jean-Baptiste has her wearing a compression sleeve on foot and it inc her pain. Has compression socks and they are okay Prior Treatments and Tests Travis xray: IMPRESSION: Continued healing with stable alignment of lateral malleolar fracture with minimal residual lucency of 5th metatarsal base fracture. Nov xray IMPRESSION: Ongoing healing of 5th metatarsal base fracture. Treatment Goals Patient/Caregiver Goals return to walking a few miles a day. avoid ankle digressing PT-OP-C Subjective Start: 02/01/24 08:25 Freq: Status: Active Protocol: Document 02/26/24 14:36 [facility] (Rec: 02/26/24 15:22 [facility] [id number]) OP-PT Subjective Patient Comments Patient Comments Pt reports ankle felt good sat and had done all the exericses. After doing the exercises and did also a walk and felt it a little (felt swollen). Went away by time went to bed. Rogers really good after the session. PT-OP-D Balance Start: 02/01/24 08:25 Freq: Status: Active Protocol: Document 02/01/24 15:23 [facility] (Rec: 02/01/24 16:29 [facility] [id number]) Balance Tests Single Limb Standing Single Limb- Right 4 sec Single Limb- Left 4 sec PT-OP-F Manual Assessment Start: 02/01/24 08:25 Freq: Status: Active Protocol: Document 02/01/24 15:23 [facility] (Rec: 02/01/24 16:29 [facility] [id number]) Manual Assessments Soft Tissue Assessment Soft Tissue Mobility Assessment sm swelling around ATFL Joint Mobility Assessment Joint Mobility Assessment no loni tenderness but delayed throbbing lat 5th MT but goes away quick PT-OP-K Range of Motion Start: 02/01/24 08:25 Freq: Status: Active Protocol: Document 02/01/24 15:23 [facility] (Rec: 02/01/24 16:29 [facility] [id number]) Ankle and Foot Goniometric Range of Motion Ankle and Foot Right Active Dorsiflexion with Knee Flexed 8 Dorsiflexion with Knee Extended 2 Plantarflexion 57 Inversion 33 Eversion 20 Left Active Dorsiflexion with Knee Flexed 9 Dorsiflexion with Knee Extended 1 Plantarflexion 58 Inversion 38 Eversion 27 PT-OP-L Special Tests Start: 02/01/24 08:25 Freq: Status: Active Protocol: Document 02/01/24 15:23 [facility] (Rec: 02/01/24 16:29 [facility] [id number]) Special Tests Foot/Ankle Special Tests Anterior Draw Comments positive r Talor Tilt Comments positive R PT-OP-M Strength Start: 02/01/24 08:25 Freq: Status: Active Protocol: Document 02/01/24 15:23 [facility] (Rec: 02/01/24 16:29 [facility] [id number]) Hip Strength Hip Manual Muscle Testing Right Flexion (L2) 4- Good- Extension (S1) 5 Normal Abduction 5 Normal External Rotation 5 Normal Internal Rotation 5 Normal Left Flexion (L2) 4 Good Extension (S1) 5 Normal Abduction 5 Normal External Rotation 4 Good Internal Rotation 5 Normal Knee Strength Knee Manual Muscle Testing Right Flexion (S2) 5 Normal Extension (L3) 5 Normal Left Flexion (S2) 5 Normal Extension (L3) 5 Normal Ankle/Foot Strength Ankle and Foot Manual Muscle Testing Right Dorsiflexion (L4) 4- Good- Plantarflexion (S1) 5 Normal Inversion 4 Good Eversion (S1) 4- Good- Left Dorsiflexion (L4) 5 Normal Plantarflexion (S1) 5 Normal Inversion 5 Normal Eversion (S1) 5 Normal Comments 20 heel raises B Toe Strength Toe Manual Muscle Testing Right 2nd Toe Flexion 4+ Good+ Extension 4+ Good+ Right Great Toe Flexion 4+ Good+ Extension 4+ Good+ Left 2nd Toe Flexion 4 Good Extension 3+ Fair+ Comments 2-5 Left Great Toe Flexion 4 Good Extension 4 Good PT-OP-Q Treatments Start: 02/01/24 08:25 Freq: Status: Active Protocol: Document 02/26/24 14:36 [facility] (Rec: 02/26/24 15:22 [facility] [id number]) Gym Equipment Shuttle Balance red clips Comments fwd: WBOS & NBOS & staggered stance B side: WBOS, NBOS fwd & side wt shifts ea Therapeutic Exercises Sitting Exercises self mob Sitting Exercise Name tennis ball and rolling pin Side right Reps/Minutes 2 min inversion Side right Equipment Used LVl 1 Reps/Minutes 12 Comments cues no IR of hip Manual Therapy Treatment Soft Tissue Mobilization plantar fascia Body Location R Mobilization Type Rolling Intensity/Depth Moderate Body Position Supine calf Body Location R soleus, gastroc, achilles Mobilization Type Rolling Intensity/Depth Moderate Comments w/APs Joint Mobilizations midfoot Comments med glide Cuneiform 1 and 2 FM Neuro Re-Education Treatment Balance Activities SLS Comments 1. alt march on blue foam x12 B 2. ball roll fwd/back x12 B mod SLS foam Details EC & head turns Surface blue foam Comments NBOS PT-OP-T Assessment and Plan Start: 02/01/24 08:25 Freq: Status: Active Protocol: Document 02/26/24 14:36 [facility] (Rec: 02/26/24 15:22 [facility] [id number]) Physical Therapy Assessment Goals activity Sessions Clerk Goal (LTG) Pt will be able to return to walking daily of 3 miles w/o inc pain in R ankle greater than 1/10 LTG Duration 04/25 strength Short Term Goal (STG) Pt will be indep w/HEP STG Duration 03/06/24 Sessions Clerk Goal (LTG) pt will score 5/5 on R ankle strength to show improved stability of ankle and dec risk for further injury LTG Duration 04/25/24 balance Impairment 3 sec SLS B Short Term Goal (STG) Pt will improve SLS to at least 5 sec to show improved balance. STG Duration 03/15/24 Sessions Clerk Goal (LTG) Pt will improve SLS to at least 5 sec to show improved balance. LTG Duration 04/25/24 Assessment Summary Assessment Pt had improved tolerance w/ balance activities and improved stability. SHe did okay w/resisted iversion w/o inc pain. tolerated forefoot mobs. Physical Therapy Plan Frequency and Duration Frequency of Treatment 1-2x/wk Duration of treatment (weeks) 12 Plan of Care Start Date 02/01/24 Plan of Care End Date 04/25/24 Next Visit Focus/Plan Next Note Type Treatment Note Next Visit Plan review long sit inversion, try eversion if able cont gentle manual for ankle and foot mobility and advance balance
--- NOTE | 2024-02-29 11:36 | PT.OTN ---
Current Diagnoses Muscle weakness (generalized) (02/29/24) Other specified disorders of tendon, right ankle and foot (02/29/24) Unsteadiness on feet (02/29/24) Nondisplaced fracture of lateral malleolus of right fibula, initial encounter for closed fracture (02/29/24) Physical Therapy Treatment Note PT-OP-A Visit Information Start: 02/01/24 08:25 Freq: Status: Active Protocol: Document 02/29/24 10:37 [facility] (Rec: 02/29/24 11:36 [facility] [id number]) Out-Patient Physical Therapy Visit Information Visit Information Visit Type Treatment Note Visit Note 04/15 Visit Start Time 10:36 Visit Stop Time 11:15 Visit Number 6 Number of CLERK SPECIALIST Visits 0 PT-OP-B Current Condition Start: 02/01/24 08:25 Freq: Status: Active Protocol: Document 02/01/24 15:23 [facility] (Rec: 02/01/24 16:29 [facility] [id number]) Current Condition History of Current Condition Current Complaints early jul 2023 History of Current Condition Pt was sitting at her desk and R leg was asleep and went down and thought she had rolled her R ankle and did RICE and then got COVID so didn't get in to office supervisor for 1 month Broke R foot and ankle. 6 weeks NWB w/boot then got out of the boot at [facility]. Has a throbbing especially in the evening. Got new hiking boots that are higher. Pain lat ankle and ant ankle. She was doing some PT at [facility] and it made it worse( about 1 month ago for a couple sessions). she did AROM exercises and what inc pain was the tband exercises. Has only cont ankle ABCs. pt hasn't been walking as much d/t weahter partly. Has been walking 3x/week for about 1.5-2 miles (does hike [place]). Prior to walked 7 miles a day. Was walking 3 miles a day until she injured herself. She started walking again in Dec. Pt does have osteopenia. Has neuropathy for past 3 years. R foot feels stiffer now. Dr. Jean-Baptiste has her wearing a compression sleeve on foot and it inc her pain. Has compression socks and they are okay Prior Treatments and Tests Travis xray: IMPRESSION: Continued healing with stable alignment of lateral malleolar fracture with minimal residual lucency of 5th metatarsal base fracture. Nov xray IMPRESSION: Ongoing healing of 5th metatarsal base fracture. Treatment Goals Patient/Caregiver Goals return to walking a few miles a day. avoid ankle digressing PT-OP-C Subjective Start: 02/01/24 08:25 Freq: Status: Active Protocol: Document 02/29/24 10:37 [facility] (Rec: 02/29/24 11:36 [facility] [id number]) OP-PT Subjective Patient Comments Patient Comments Pt reports no issue w/new band exercise. reports ankle has felt so much better this week Patient Reported Progress Improving PT-OP-D Balance Start: 02/01/24 08:25 Freq: Status: Active Protocol: Document 02/01/24 15:23 [facility] (Rec: 02/01/24 16:29 [facility] [id number]) Balance Tests Single Limb Standing Single Limb- Right 4 sec Single Limb- Left 4 sec PT-OP-F Manual Assessment Start: 02/01/24 08:25 Freq: Status: Active Protocol: Document 02/01/24 15:23 [facility] (Rec: 02/01/24 16:29 [facility] [id number]) Manual Assessments Soft Tissue Assessment Soft Tissue Mobility Assessment sm swelling around ATFL Joint Mobility Assessment Joint Mobility Assessment no loni tenderness but delayed throbbing lat 5th MT but goes away quick PT-OP-K Range of Motion Start: 02/01/24 08:25 Freq: Status: Active Protocol: Document 02/01/24 15:23 [facility] (Rec: 02/01/24 16:29 [facility] [id number]) Ankle and Foot Goniometric Range of Motion Ankle and Foot Right Active Dorsiflexion with Knee Flexed 8 Dorsiflexion with Knee Extended 2 Plantarflexion 57 Inversion 33 Eversion 20 Left Active Dorsiflexion with Knee Flexed 9 Dorsiflexion with Knee Extended 1 Plantarflexion 58 Inversion 38 Eversion 27 PT-OP-L Special Tests Start: 02/01/24 08:25 Freq: Status: Active Protocol: Document 02/01/24 15:23 [facility] (Rec: 02/01/24 16:29 [facility] [id number]) Special Tests Foot/Ankle Special Tests Anterior Draw Comments positive r Talor Tilt Comments positive R PT-OP-M Strength Start: 02/01/24 08:25 Freq: Status: Active Protocol: Document 02/01/24 15:23 [facility] (Rec: 02/01/24 16:29 [facility] [id number]) Hip Strength Hip Manual Muscle Testing Right Flexion (L2) 4- Good- Extension (S1) 5 Normal Abduction 5 Normal External Rotation 5 Normal Internal Rotation 5 Normal Left Flexion (L2) 4 Good Extension (S1) 5 Normal Abduction 5 Normal External Rotation 4 Good Internal Rotation 5 Normal Knee Strength Knee Manual Muscle Testing Right Flexion (S2) 5 Normal Extension (L3) 5 Normal Left Flexion (S2) 5 Normal Extension (L3) 5 Normal Ankle/Foot Strength Ankle and Foot Manual Muscle Testing Right Dorsiflexion (L4) 4- Good- Plantarflexion (S1) 5 Normal Inversion 4 Good Eversion (S1) 4- Good- Left Dorsiflexion (L4) 5 Normal Plantarflexion (S1) 5 Normal Inversion 5 Normal Eversion (S1) 5 Normal Comments 20 heel raises B Toe Strength Toe Manual Muscle Testing Right 2nd Toe Flexion 4+ Good+ Extension 4+ Good+ Right Great Toe Flexion 4+ Good+ Extension 4+ Good+ Left 2nd Toe Flexion 4 Good Extension 3+ Fair+ Comments 2-5 Left Great Toe Flexion 4 Good Extension 4 Good PT-OP-Q Treatments Start: 02/01/24 08:25 Freq: Status: Active Protocol: Document 02/29/24 10:37 [facility] (Rec: 02/29/24 11:36 [facility] [id number]) Gym Equipment Shuttle Balance red clips Comments fwd: WBOS & NBOS & staggered stance B side: WBOS, NBOS fwd & side wt shifts ea Therapeutic Exercises Sitting Exercises eversion Side right Equipment Used lvl 1 Reps/Minutes 12 Comments cues no hip motion inversion Side right Equipment Used LVl 1 Reps/Minutes 12 Comments cues no IR of hip Standing Exercises calf stretch Standing Exercise Name rain Side bilateral Reps/Minutes 1 imin Manual Therapy Treatment Soft Tissue Mobilization plantar fascia Body Location R Mobilization Type Rolling Intensity/Depth Moderate Body Position Supine Joint Mobilizations midfoot Comments med glide navicular & Cuneiform 1 and 2 FM & lat cuboid Neuro Re-Education Treatment Balance Activities SLS Comments 1. alt march on blue foam x12 B 2. ball roll fwd/back x12 B mod SLS foam Details EC & head turns Surface blue foam Comments NBOS & staggered stance B PT-OP-T Assessment and Plan Start: 02/01/24 08:25 Freq: Status: Active Protocol: Document 02/29/24 10:37 [facility] (Rec: 02/29/24 11:36 [facility] [id number]) Physical Therapy Assessment Goals activity Scoop Machine Operator Goal (LTG) Pt will be able to return to walking daily of 3 miles w/o inc pain in R ankle greater than 1/10 LTG Duration 04/25 strength Short Term Goal (STG) Pt will be indep w/HEP STG Duration 03/06/24 Correction Goal (LTG) pt will score 5/5 on R ankle strength to show improved stability of ankle and dec risk for further injury LTG Duration 04/25/24 balance Impairment 3 sec SLS B Short Term Goal (STG) Pt will improve SLS to at least 5 sec to show improved balance. STG Duration 03/15/24 Correction Goal (LTG) Pt will improve SLS to at least 5 sec to show improved balance. LTG Duration 04/25/24 Assessment Summary Assessment Pt did well with addition of eversion exercise w/o inc pain . Did better w/balance and is tolerating further balance work w/o c/o pain. Improving overall DF mobility but still has dec forefoot mobility. Physical Therapy Plan Frequency and Duration Frequency of Treatment 1-2x/wk Duration of treatment (weeks) 12 Plan of Care Start Date 02/01/24 Plan of Care End Date 04/25/24 Next Visit Focus/Plan Next Note Type Treatment Note Next Visit Plan assess response to long sit inversion; progress DF (avoid band initially-slow progress w /DF as this can inc pain cont gentle manual for ankle and foot mobility and advance balance as able Pt has delayed pain response so progress slowly
--- NOTE | 2024-03-06 15:16 | PT.OTN ---
Current Diagnoses Muscle weakness (generalized) (03/06/24) Other specified disorders of tendon, right ankle and foot (03/06/24) Unsteadiness on feet (03/06/24) Nondisplaced fracture of lateral malleolus of right fibula, initial encounter for closed fracture (03/06/24) Physical Therapy Treatment Note PT-OP-A Visit Information Start: 02/01/24 08:25 Freq: Status: Active Protocol: Document 03/06/24 14:36 SP (Rec: 03/06/24 16:16 SP [id number]) Out-Patient Physical Therapy Visit Information Visit Information Visit Type Treatment Note Visit Note 05/15 Visit Start Time 14:36 Visit Stop Time 15:16 Visit Number 7 Number of ELIGIBILITY AND OCCUPANCY INTERVIEWER Visits 1 PT-OP-B Current Condition Start: 02/01/24 08:25 Freq: Status: Active Protocol: Document 02/01/24 15:23 [facility] (Rec: 02/01/24 16:29 [facility] [id number]) Current Condition History of Current Condition Current Complaints early jul 2023 History of Current Condition Pt was sitting at her desk and R leg was asleep and went down and thought she had rolled her R ankle and did RICE and then got COVID so didn't get in to commercial litigation attorney for 1 month Broke R foot and ankle. 6 weeks NWB w/boot then got out of the boot at [facility]. Has a throbbing especially in the evening. Got new hiking boots that are higher. Pain lat ankle and ant ankle. She was doing some PT at [facility] and it made it worse( about 1 month ago for a couple sessions). she did AROM exercises and what inc pain was the tband exercises. Has only cont ankle ABCs. pt hasn't been walking as much d/t weahter partly. Has been walking 3x/week for about 1.5-2 miles (does hike [place]). Prior to walked 7 miles a day. Was walking 3 miles a day until she injured herself. She started walking again in Dec. Pt does have osteopenia. Has neuropathy for past 3 years. R foot feels stiffer now. Dr. Jean-Baptiste has her wearing a compression sleeve on foot and it inc her pain. Has compression socks and they are okay Prior Treatments and Tests Travis xray: IMPRESSION: Continued healing with stable alignment of lateral malleolar fracture with minimal residual lucency of 5th metatarsal base fracture. Nov xray IMPRESSION: Ongoing healing of 5th metatarsal base fracture. Treatment Goals Patient/Caregiver Goals return to walking a few miles a day. avoid ankle digressing PT-OP-C Subjective Start: 02/01/24 08:25 Freq: Status: Active Protocol: Document 03/06/24 14:36 SP (Rec: 03/06/24 16:16 SP [id number]) OP-PT Subjective Patient Comments Patient Comments Less tightness and residual pain lately into evening. She reports challenge keeping hip still with band ex wanted ELIGIBILITY AND OCCUPANCY INTERVIEWER look at/suggestions. Patient Reported Progress Improving PT-OP-D Balance Start: 02/01/24 08:25 Freq: Status: Active Protocol: Document 02/01/24 15:23 [facility] (Rec: 02/01/24 16:29 [facility] [id number]) Balance Tests Single Limb Standing Single Limb- Right 4 sec Single Limb- Left 4 sec PT-OP-F Manual Assessment Start: 02/01/24 08:25 Freq: Status: Active Protocol: Document 02/01/24 15:23 [facility] (Rec: 02/01/24 16:29 [facility] [id number]) Manual Assessments Soft Tissue Assessment Soft Tissue Mobility Assessment sm swelling around ATFL Joint Mobility Assessment Joint Mobility Assessment no loni tenderness but delayed throbbing lat 5th MT but goes away quick PT-OP-K Range of Motion Start: 02/01/24 08:25 Freq: Status: Active Protocol: Document 02/01/24 15:23 [facility] (Rec: 02/01/24 16:29 [facility] [id number]) Ankle and Foot Goniometric Range of Motion Ankle and Foot Right Active Dorsiflexion with Knee Flexed 8 Dorsiflexion with Knee Extended 2 Plantarflexion 57 Inversion 33 Eversion 20 Left Active Dorsiflexion with Knee Flexed 9 Dorsiflexion with Knee Extended 1 Plantarflexion 58 Inversion 38 Eversion 27 PT-OP-L Special Tests Start: 02/01/24 08:25 Freq: Status: Active Protocol: Document 02/01/24 15:23 [facility] (Rec: 02/01/24 16:29 [facility] [id number]) Special Tests Foot/Ankle Special Tests Anterior Draw Comments positive r Talor Tilt Comments positive R PT-OP-M Strength Start: 02/01/24 08:25 Freq: Status: Active Protocol: Document 02/01/24 15:23 [facility] (Rec: 02/01/24 16:29 [facility] [id number]) Hip Strength Hip Manual Muscle Testing Right Flexion (L2) 4- Good- Extension (S1) 5 Normal Abduction 5 Normal External Rotation 5 Normal Internal Rotation 5 Normal Left Flexion (L2) 4 Good Extension (S1) 5 Normal Abduction 5 Normal External Rotation 4 Good Internal Rotation 5 Normal Knee Strength Knee Manual Muscle Testing Right Flexion (S2) 5 Normal Extension (L3) 5 Normal Left Flexion (S2) 5 Normal Extension (L3) 5 Normal Ankle/Foot Strength Ankle and Foot Manual Muscle Testing Right Dorsiflexion (L4) 4- Good- Plantarflexion (S1) 5 Normal Inversion 4 Good Eversion (S1) 4- Good- Left Dorsiflexion (L4) 5 Normal Plantarflexion (S1) 5 Normal Inversion 5 Normal Eversion (S1) 5 Normal Comments 20 heel raises B Toe Strength Toe Manual Muscle Testing Right 2nd Toe Flexion 4+ Good+ Extension 4+ Good+ Right Great Toe Flexion 4+ Good+ Extension 4+ Good+ Left 2nd Toe Flexion 4 Good Extension 3+ Fair+ Comments 2-5 Left Great Toe Flexion 4 Good Extension 4 Good PT-OP-Q Treatments Start: 02/01/24 08:25 Freq: Status: Active Protocol: Document 03/06/24 14:36 SP (Rec: 03/06/24 16:16 SP [id number]) Therapeutic Exercises Sitting Exercises eversion Sitting Exercise Name modified to seated, self video on phone Side right Resistance lvl 1>2 Equipment Used small ball between knees Reps/Minutes 12 Comments no hip motion with added ball between knees inversion Sitting Exercise Name modified to seated, self video on phone Side right Resistance LVl 1 reports easy>lvl 2 Equipment Used long leg anchored LUE over R Reps/Minutes 12 Comments cued eccentric control Standing Exercises heel and toe walking Standing Exercise Name initiated and added to HEP ( declined HO) Reps/Minutes 15 ft x3 lengths each alternate lengths Comments improved stability and form post cue tall/core/trunk over forefoot/WBOS DF Side right Reps/Minutes 15 calf stretch Standing Exercise Name bottom step Side bilateral Reps/Minutes 1 imin heel raises Standing Exercise Name DL Side bilateral Equipment Used off step Reps/Minutes 10 Neuro Re-Education Treatment Balance Activities hurdles Surface floor>foam/1 air stones Equipment 6 hurdles Comments cued heel toe patterning, Wider CANDIDA, good stab> progressed added foam stones with light contact pt elbow /c improved stability and eccentric heel strike. SLS sliders Details R SLS, L slider 10, 9, 7, 6 o' clock Equipment furniture slider under LLE, rail contact initially Comments cued R knee behind & midline forefoot, hip hinge reaching back 6 o'clock- pnfree SLS Comments 1. alt march on blue foam x12 B 2. ball roll fwd/back, STS x12 B mod SLS PT-OP-T Assessment and Plan Start: 02/01/24 08:25 Freq: Status: Active Protocol: Document 03/06/24 14:36 SP (Rec: 03/06/24 16:16 SP [id number]) Physical Therapy Assessment Goals activity Residential Goal (LTG) Pt will be able to return to walking daily of 3 miles w/o inc pain in R ankle greater than 1/10 LTG Duration 04/25 strength Short Term Goal (STG) Pt will be indep w/HEP STG Duration 03/06/24 Residential Goal (LTG) pt will score 5/5 on R ankle strength to show improved stability of ankle and dec risk for further injury LTG Duration 04/25/24 balance Impairment 3 sec SLS B Short Term Goal (STG) Pt will improve SLS to at least 5 sec to show improved balance. STG Duration 03/15/24 Personal Lines Insurance Agent Goal (LTG) Pt will improve SLS to at least 5 sec to show improved balance. LTG Duration 04/25/24 Assessment Summary Assessment Pt good response to modification seated knees bent /feet floor with good response after required cues for set up, direction movement during and added ball between knees for alignment provided increased resistance per pt request. Pt responded well with progressed heel raises off step vs floor and review DF in standing all pnfree. Initiated heel and toe walking with no pain and improved stability with cues COG over CANDIDA. Trialed SLS sliders with good pnfree response will assess next tx before continue home carryover. Physical Therapy Plan Frequency and Duration Frequency of Treatment 1-2x/wk Duration of treatment (weeks) 12 Plan of Care Start Date 02/01/24 Plan of Care End Date 06/20/24 Therapeutic Interventions Therapeutic Interventions Balance Training,Gait Training ,Home Exercise Program,Joint Mobilizations,Manual Therapy, Neuromuscular Re-education, Orthotic/Prosthetic Management ,Patient/Caregiver Education, Self-Care/Home Management,Soft Tissue Mobilization,Taping, Therapeutic Activities, Therapeutic Exercises Modalities Cold Pack/Ice Massage,Electric Stimulation,Hot Packs, Infrared Therapy,Ultrasound Next Visit Focus/Plan Next Note Type Treatment Note Next Visit Plan Ask response seated TB #2, heel/toe walking, SLS sliders, uneven hurdles. POC PT: progress DF standing ( avoid band initially-slow progress w/DF as this can inc pain cont gentle manual for ankle and foot mobility and advance balance as able Pt has delayed pain response so progress slowly
--- NOTE | 2024-03-20 09:03 | PT.OPDS ---
Current Diagnoses Muscle weakness (generalized) (03/20/24) Other specified disorders of tendon, right ankle and foot (03/20/24) Unsteadiness on feet (03/20/24) Nondisplaced fracture of lateral malleolus of right fibula, initial encounter for closed fracture (03/20/24) Visit Care Team Role Provider Type Artie Heaton MD Family Provider Physician Primary Care Provider Specialty: Family Practice Address: [address] [place] [address], [id number] Email: [email or web address] Attending Provider Non-Staff Referring Provider Specialty: Podiatry Address: [address] [place] [address], [id number] Email: Visit Number Visit Number 8 Discharge Summary PT-OP-B Current Condition Start: 02/01/24 08:25 Freq: Status: Active Protocol: Document 02/01/24 15:23 [facility] (Rec: 02/01/24 16:29 [facility] [id number]) Current Condition History of Current Condition Current Complaints early jul 2023 History of Current Condition Pt was sitting at her desk and R leg was asleep and went down and thought she had rolled her R ankle and did RICE and then got COVID so didn't get in to technical instructor for 1 month Broke R foot and ankle. 6 weeks NWB w/boot then got out of the boot at [facility]. Has a throbbing especially in the evening. Got new hiking boots that are higher. Pain lat ankle and ant ankle. She was doing some PT at [facility] and it made it worse( about 1 month ago for a couple sessions). she did AROM exercises and what inc pain was the tband exercises. Has only cont ankle ABCs. pt hasn't been walking as much d/t weahter partly. Has been walking 3x/week for about 1.5-2 miles (does hike [place]). Prior to pandemic walked 7 miles a day. Was walking 3 miles a day until she injured herself. She started walking again in Dec. Pt does have osteopenia. Has neuropathy for past 3 years. R foot feels stiffer now. Dr. Jean-Baptiste has her wearing a compression sleeve on foot and it inc her pain. Has compression socks and they are okay Prior Treatments and Tests Travis xray: IMPRESSION: Continued healing with stable alignment of lateral malleolar fracture with minimal residual lucency of 5th metatarsal base fracture. Nov xray IMPRESSION: Ongoing healing of 5th metatarsal base fracture. Treatment Goals Patient/Caregiver Goals return to walking a few miles a day. avoid ankle digressing PT-OP-C Subjective Start: 02/01/24 08:25 Freq: Status: Active Protocol: Document 03/20/24 13:47 SP (Rec: 03/21/24 08:57 SP [id number]) OP-PT Subjective Patient Comments Patient Comments Pt reports no pain after last tx with added ther ex and resistance. Only discomfort soreness in med/lat monae on R by end day. Patient Reported Progress Improving PT-OP-D Balance Start: 02/01/24 08:25 Freq: Status: Active Protocol: Document 02/01/24 15:23 [facility] (Rec: 02/01/24 16:29 [facility] [id number]) Balance Tests Single Limb Standing Single Limb- Right 4 sec Single Limb- Left 4 sec PT-OP-F Manual Assessment Start: 02/01/24 08:25 Freq: Status: Active Protocol: Document 02/01/24 15:23 [facility] (Rec: 02/01/24 16:29 [facility] [id number]) Manual Assessments Soft Tissue Assessment Soft Tissue Mobility Assessment sm swelling around ATFL Joint Mobility Assessment Joint Mobility Assessment no loni tenderness but delayed throbbing lat 5th MT but goes away quick PT-OP-K Range of Motion Start: 02/01/24 08:25 Freq: Status: Active Protocol: Document 02/01/24 15:23 [facility] (Rec: 02/01/24 16:29 [facility] [id number]) Ankle and Foot Goniometric Range of Motion Ankle and Foot Right Active Dorsiflexion with Knee Flexed 8 Dorsiflexion with Knee Extended 2 Plantarflexion 57 Inversion 33 Eversion 20 Left Active Dorsiflexion with Knee Flexed 9 Dorsiflexion with Knee Extended 1 Plantarflexion 58 Inversion 38 Eversion 27 PT-OP-L Special Tests Start: 02/01/24 08:25 Freq: Status: Active Protocol: Document 02/01/24 15:23 [facility] (Rec: 02/01/24 16:29 [facility] [id number]) Special Tests Foot/Ankle Special Tests Anterior Draw Comments positive r Talor Tilt Comments positive R PT-OP-M Strength Start: 02/01/24 08:25 Freq: Status: Active Protocol: Document 03/20/24 13:47 SP (Rec: 03/21/24 08:57 SP [id number]) Hip Strength Hip Manual Muscle Testing Right Flexion (L2) 5 Normal Extension (S1) 5 Normal Abduction 5 Normal External Rotation 5 Normal Internal Rotation 5 Normal Left Flexion (L2) 5 Normal Extension (S1) 5 Normal Abduction 5 Normal External Rotation 5 Normal Internal Rotation 5 Normal Knee Strength Knee Manual Muscle Testing Right Flexion (S2) 5 Normal Extension (L3) 5 Normal Left Flexion (S2) 5 Normal Extension (L3) 5 Normal Ankle/Foot Strength Ankle and Foot Manual Muscle Testing Right Dorsiflexion (L4) 5 Normal Plantarflexion (S1) 5 Normal Inversion 5 Normal Eversion (S1) 4+ Good+ Left Dorsiflexion (L4) 5 Normal Plantarflexion (S1) 5 Normal Inversion 5 Normal Eversion (S1) 5 Normal Comments 20 heel raises B Toe Strength Toe Manual Muscle Testing Right 2nd Toe Flexion 5 Normal Extension 4+ Good+ Right Great Toe Flexion 5 Normal Extension 5 Normal Left 2nd Toe Flexion 4+ Good+ Extension 4- Good- Comments 2-5 Left Great Toe Flexion 5 Normal Extension 5 Normal PT-OP-T Assessment and Plan Start: 02/01/24 08:25 Freq: Status: Active Protocol: Document 03/20/24 17:02 [facility] (Rec: 03/21/24 09:03 [facility] [id number]) Physical Therapy Assessment Goals activity Snf Goal (LTG) Pt will be able to return to walking daily of 3 miles w/o inc pain in R ankle greater than 1/03/20/24: Progressing: walking [place] 2 miles with just soreness discomfort distal med /lat tibia but not limiting. LTG Duration 04/25 progressing 03/20/24 strength Short Term Goal (STG) Pt will be indep w/HEP: resisted ankle seated, standing: heel toe walking, DL > SL HR, DF, band walk, runner 's SL heel lift/glut firing. STG Duration 03/06/24 progressing 03/20/24 Cooperage Shop Supervisor Goal (LTG) pt will score 5/5 on R ankle strength to show improved stability of ankle and dec risk for further injury. 03/20/24: gained about full grade strength, see values. LTG Duration 04/25/24 Progressed 03/20/24 balance Impairment 3 sec SLS B Short Term Goal (STG) Pt will improve SLS to at least 5 sec to show improved balance. 03/20/24: GOAL MET RLE 5-7 SEc, LLE 9 sec STG Duration 03/15/24 GOAL MET 03/20/24 Snf Goal (LTG) Pt will improve SLS to at least 5 sec to show improved balance. 03/20/24: GOAL MET RLE 5-7 SEc, LLE 9 sec LTG Duration 04/25/24 GOAL MET 03/20/24 Assessment Summary Assessment Pt DC today per discussion w/ pt and ANNUAL GIVING OFFICER and pt no longer havign pain w/normal activities and has returned to hiking up [place] and able to do what she needs w/o inc pain. Much improved balance and strength and she is indep w/HEP. DC to HEP Physical Therapy Plan Discharge Physical Therapy Discharge Reasons Goals Met
--- NOTE | 2024-03-20 14:34 | PT.OTN ---
Current Diagnoses Muscle weakness (generalized) (03/20/24) Other specified disorders of tendon, right ankle and foot (03/20/24) Unsteadiness on feet (03/20/24) Nondisplaced fracture of lateral malleolus of right fibula, initial encounter for closed fracture (03/20/24) Physical Therapy Treatment Note PT-OP-A Visit Information Start: 02/01/24 08:25 Freq: Status: Active Protocol: Document 03/20/24 13:47 SP (Rec: 03/21/24 08:57 SP [id number]) Out-Patient Physical Therapy Visit Information Visit Information Visit Type Treatment Note Visit Note 06/15 Visit Start Time 13:47 Visit Stop Time 14:34 Visit Number 8 Number of WOOD HEEL FINISHER Visits 2 PT-OP-B Current Condition Start: 02/01/24 08:25 Freq: Status: Active Protocol: Document 02/01/24 15:23 [facility] (Rec: 02/01/24 16:29 [facility] [id number]) Current Condition History of Current Condition Current Complaints early jul 2023 History of Current Condition Pt was sitting at her desk and R leg was asleep and went down and thought she had rolled her R ankle and did RICE and then got COVID so didn't get in to machine lacer for 1 month Broke R foot and ankle. 6 weeks NWB w/boot then got out of the boot at [facility]. Has a throbbing especially in the evening. Got new hiking boots that are higher. Pain lat ankle and ant ankle. She was doing some PT at [facility] and it made it worse( about 1 month ago for a couple sessions). she did AROM exercises and what inc pain was the tband exercises. Has only cont ankle ABCs. pt hasn't been walking as much d/t weahter partly. Has been walking 3x/week for about 1.5-2 miles (does hike up [place]). Prior to walked 7 miles a day. Was walking 3 miles a day until she injured herself. She started walking again in Dec. Pt does have osteopenia. Has neuropathy for past 3 years. R foot feels stiffer now. Dr. Jean-Baptiste has her wearing a compression sleeve on foot and it inc her pain. Has compression socks and they are okay Prior Treatments and Tests Travis xray: IMPRESSION: Continued healing with stable alignment of lateral malleolar fracture with minimal residual lucency of 5th metatarsal base fracture. Nov xray IMPRESSION: Ongoing healing of 5th metatarsal base fracture. Treatment Goals Patient/Caregiver Goals return to walking a few miles a day. avoid ankle digressing PT-OP-C Subjective Start: 02/01/24 08:25 Freq: Status: Active Protocol: Document 03/20/24 13:47 SP (Rec: 03/21/24 08:57 SP [id number]) OP-PT Subjective Patient Comments Patient Comments Pt reports no pain after last tx with added ther ex and resistance. Only discomfort soreness in med/lat monae on R by end day. Patient Reported Progress Improving PT-OP-D Balance Start: 02/01/24 08:25 Freq: Status: Active Protocol: Document 02/01/24 15:23 [facility] (Rec: 02/01/24 16:29 [facility] [id number]) Balance Tests Single Limb Standing Single Limb- Right 4 sec Single Limb- Left 4 sec PT-OP-F Manual Assessment Start: 02/01/24 08:25 Freq: Status: Active Protocol: Document 02/01/24 15:23 [facility] (Rec: 02/01/24 16:29 [facility] [id number]) Manual Assessments Soft Tissue Assessment Soft Tissue Mobility Assessment sm swelling around ATFL Joint Mobility Assessment Joint Mobility Assessment no loni tenderness but delayed throbbing lat 5th MT but goes away quick PT-OP-K Range of Motion Start: 02/01/24 08:25 Freq: Status: Active Protocol: Document 02/01/24 15:23 [facility] (Rec: 02/01/24 16:29 [facility] [id number]) Ankle and Foot Goniometric Range of Motion Ankle and Foot Right Active Dorsiflexion with Knee Flexed 8 Dorsiflexion with Knee Extended 2 Plantarflexion 57 Inversion 33 Eversion 20 Left Active Dorsiflexion with Knee Flexed 9 Dorsiflexion with Knee Extended 1 Plantarflexion 58 Inversion 38 Eversion 27 PT-OP-L Special Tests Start: 02/01/24 08:25 Freq: Status: Active Protocol: Document 02/01/24 15:23 [facility] (Rec: 02/01/24 16:29 [facility] [id number]) Special Tests Foot/Ankle Special Tests Anterior Draw Comments positive r Talor Tilt Comments positive R PT-OP-M Strength Start: 02/01/24 08:25 Freq: Status: Active Protocol: Document 03/20/24 13:47 SP (Rec: 03/21/24 08:57 SP [id number]) Hip Strength Hip Manual Muscle Testing Right Flexion (L2) 5 Normal Extension (S1) 5 Normal Abduction 5 Normal External Rotation 5 Normal Internal Rotation 5 Normal Left Flexion (L2) 5 Normal Extension (S1) 5 Normal Abduction 5 Normal External Rotation 5 Normal Internal Rotation 5 Normal Knee Strength Knee Manual Muscle Testing Right Flexion (S2) 5 Normal Extension (L3) 5 Normal Left Flexion (S2) 5 Normal Extension (L3) 5 Normal Ankle/Foot Strength Ankle and Foot Manual Muscle Testing Right Dorsiflexion (L4) 5 Normal Plantarflexion (S1) 5 Normal Inversion 5 Normal Eversion (S1) 4+ Good+ Left Dorsiflexion (L4) 5 Normal Plantarflexion (S1) 5 Normal Inversion 5 Normal Eversion (S1) 5 Normal Comments 20 heel raises B Toe Strength Toe Manual Muscle Testing Right 2nd Toe Flexion 5 Normal Extension 4+ Good+ Right Great Toe Flexion 5 Normal Extension 5 Normal Left 2nd Toe Flexion 4+ Good+ Extension 4- Good- Comments 2-5 Left Great Toe Flexion 5 Normal Extension 5 Normal PT-OP-Q Treatments Start: 02/01/24 08:25 Freq: Status: Active Protocol: Document 03/20/24 13:47 SP (Rec: 03/21/24 08:57 SP [id number]) Therapeutic Exercises Standing Exercises band walk Standing Exercise Name added to HEP Resistance Tb #2 at ankles Equipment Used PRN wall contact (counter home ) Reps/Minutes 10 ft x2 laps Comments cued DF and eccentric together LE for allow ft clearance and stability runner lift glut/calf engagement Standing Exercise Name Progressed to runners SL lift /c glut added to HEP Side right Reps/Minutes 2x5 reps heel and toe walking Reps/Minutes 15 ft x3 lengths each alternate lengths Comments good form/stability heel raises Standing Exercise Name progressed to SL Side bilateral Equipment Used floor, rail support Reps/Minutes 10 Comments tiring but good form PT-OP-T Assessment and Plan Start: 02/01/24 08:25 Freq: Status: Active Protocol: Document 03/20/24 13:47 SP (Rec: 03/21/24 08:57 SP [id number]) Physical Therapy Assessment Goals activity Mcfp Goal (LTG) Pt will be able to return to walking daily of 3 miles w/o inc pain in R ankle greater than 1/10 03/20/24: Progressing: walking aobut 2 miles with just soreness discomfort distal med /lat tibia but not limiting. LTG Duration 04/25 progressing 03/20/24 strength Short Term Goal (STG) Pt will be indep w/HEP: resisted ankle seated, standing: heel toe walking, DL > SL HR, DF, band walk, runner 's SL heel lift/glut firing. STG Duration 03/06/24 progressing 03/20/24 Mcfp Goal (LTG) pt will score 5/5 on R ankle strength to show improved stability of ankle and dec risk for further injury. 03/20/24: gained about full grade strength, see values. LTG Duration 04/25/24 Progressed 03/20/24 balance Impairment 3 sec SLS B Short Term Goal (STG) Pt will improve SLS to at least 5 sec to show improved balance. 03/20/24: GOAL MET RLE 5-7 SEc, LLE 9 sec STG Duration 03/15/24 GOAL MET 03/20/24 Stenotype Machine Operator Goal (LTG) Pt will improve SLS to at least 5 sec to show improved balance. 03/20/24: GOAL MET RLE 5-7 SEc, LLE 9 sec LTG Duration 04/25/24 GOAL MET 03/20/24 Assessment Summary Assessment Pt made gains in R ankle strength. Improved SLS time especially with cuing for tall posturing over [facility] with periscapular and TA facilitation. Pt feels ready to DC and continue on own, good response no pain and effort tiring with progressive to SLS ther ex today. Physical Therapy Plan Frequency and Duration Frequency of Treatment 1-2x/wk Duration of treatment (weeks) 12 Plan of Care Start Date 02/01/24 Plan of Care End Date 04/25/24 Therapeutic Interventions Therapeutic Interventions Balance Training,Gait Training ,Home Exercise Program,Joint Mobilizations,Manual Therapy, Neuromuscular Re-education, Orthotic/Prosthetic Management ,Patient/Caregiver Education, Self-Care/Home Management,Soft Tissue Mobilization,Taping, Therapeutic Activities, Therapeutic Exercises Modalities Cold Pack/Ice Massage,Electric Stimulation,Hot Packs, Infrared Therapy,Ultrasound Discharge Physical Therapy Discharge Reasons Patient Request Discharge Comments Ready to continue on own. Next Visit Focus/Plan Next Note Type Discharge Summary Next Visit Plan DC to HEP
== END 2024-03-26 10:42 | disposition home or self-care (01) ==
LOC: PHYS 13:45
PROVIDERS: Family Provider Family Medicine; PCP Family Medicine; Referring Provider Podiatrist; Visit Provider Podiatrist
DX: S82.64XA Nondisplaced fracture of lateral malleolus of right fibula, initial encounter for closed fracture (principal); M67.873 Other specified disorders of tendon, right ankle and foot; M62.81 Muscle weakness (generalized); R26.81 Unsteadiness on feet
CPT/HCPCS: 97110; 97112; 97140; 97162; 97535

== ENCOUNTER → 2024-05-01 11:40 | Outpatient (CLI) | payer MEDICARE, OTHER, SELFPAY ==
--- NOTE | 2024-05-01 11:42 | DI.MRI.S_ITS ---
BREAST MRI OF BOTH BREASTS: 05/01/2024 CLINICAL: Routine screening. Personal history of right breast cancer. PROCEDURE: MR BREAST BI WO/W CON INDICATIONS: Routine Screening TECHNIQUE: The patient was placed prone in a dedicated breast imaging coil. Precontrast axial STIR and 3D FLASH without fat saturation sequences were obtained. Both before and after bolus injection of contrast, sequential 1-minute axial 3D FLASH with fat saturation sequences for 3 time points, with subtraction images and maximum intensity projections (MIP's) generated. Delayed sagittal FLASH images with fat saturation were also obtained. Computer-aided detection, including computer algorithm analysis of MRI image data for lesion detection and characterization, pharmacokinetic analysis, with further physician review for interpretation, was performed. Comparison: 04/13/2023 mammogram and MRI FINDINGS: Image quality: Diagnostic. The breasts are heterogeneously dense. There is minimal background parenchymal enhancement. Right breast: Postsurgical changes. No suspicious mass, non-mass enhancement, or focus Left breast: Post biopsy changes. No suspicious mass, non-mass enhancement, or focus. Miscellaneous: No suspicious lymphadenopathy by size criteria within the field of view. The partially visualized anterior mediastinum and upper abdomen are unremarkable. IMPRESSION: BENIGN No suspicious findings in either breast. Recommend continued annual screening mammography and supplemental MRI screening BIRADS 2 COMMENT: The imaging literature indicates that a negative contrast breast MRI examination has a high sensitivity and a moderate specificity for detecting and excluding invasive carcinomas to a detection threshold of 3-5 mm; nonetheless, appropriate clinical and mammographic follow-up are recommended. MRI is not sensitive for detecting DCIS (ductal carcinoma in situ) and may not detect large invasive neoplasms that show only minimal enhancement such as mucinous carcinoma. If there are suspicious calcifications or clinically worrisome palpable masses, then biopsy should still be considered. Invasive neoplasms can be hidden by co-existent and benign enhancement caused by mastitis, hormone therapy effects, radiation therapy, , and recent biopsy or surgery. False positive examinations can occur in a number of circumstances, including breasts that have recently been subject to invasive procedures and those that contain atypical ductal hyperplasia, hormonally stimulated glandular tissue, fat necrosis, or radial scars. This exam was interpreted at Station ID: [id number]. Electronically Signed By: Michael garcia/:05/01/2024 13:37:03 Entry: sheri - 05/02/2024 10:36:15 ACR BI-RADS Category 2: Benign Finding(s) 0020I
== END ==
PROVIDERS: Family Provider Family Medicine; PCP Family Medicine; Referring Provider Family Medicine; Visit Provider Family Medicine
DX: Z85.3 Personal history of malignant neoplasm of breast (principal); Z12.39 Encounter for other screening for malignant neoplasm of breast; R92.333 Mammographic heterogeneous density, bilateral breasts
CPT/HCPCS: 77049; A9579

== ENCOUNTER 2024-05-07 10:23 | Day surgery (SDC) | payer MEDICARE, OTHER, SELFPAY ==
[2024-05-07 10:30] VITALS: BP 113/72; PULSE 64; RESP 16; TEMP 36.7; O2SAT 99
--- NOTE | 2024-05-07 10:53 | PM.HP.1 ---
History of Present Illness History of Present Illness Date Patient Seen: 05/07/24 Time Patient Seen: 10:53 Chief complaint: SDC Narrative: 68-year-old woman here for screening colonoscopy. Last colonoscopy 10 years ago normal. No family history of colon cancer. No abdominal concerns today. [facility] Medical History (Updated 05/07/24 @ 10:38 by Marie Acharya RN) Osteopenia after menopause Hyperlipidemia History of right breast cancer (~2009) Hypothyroidism Insomnia Breast cancer Surgical History Anesthesia S/P lumpectomy, right breast (~2009) Hx of hysterectomy (~2007) Family History Father Hyperlipidemia Mother Ovarian cancer Social History household members: spouse Smoking Status: Never smoker alcohol intake: current Meds Home Medications and Allergies Home Medications Medication Instructions Recorded Confirmed Type clotrimazole 1 % topical cream 1 applictn topical BID PRN Rash 09/07/20 05/25/23 History (Antifungal (clotrimazole)) citracel w/ D3 8 ml PO DAILY 09/28/21 05/25/23 History halobetasol propionate 0.05 % 1 applic topical MONTHLY #15 grams 09/28/21 05/25/23 Rx topical cream magnesium 250 mg tablet 250 mg PO DAILY 09/28/21 05/07/24 History potassium citrate 99mg 99 mg PO DAILY 09/28/21 05/25/23 History vit B complex 100 combo no.2 100 tab PO 09/28/21 05/25/23 History mg tablet,extended release (Balanced B-100 Complex) levothyroxine 75 mcg tablet 75 mcg PO DAILY #90 tabs 03/12/24 05/07/24 Rx rosuvastatin 20 mg tablet See Rx Instructions .Route 03/12/24 05/07/24 Rx .COMPLEX #90 tabs Allergies Allergy/AdvReac Type Severity Reaction Status Date / Time No Known Drug Allergies Allergy Verified 05/07/24 10:38 Exam Vital Signs (past 8 hours): - 05/07/24 10:30 Temperature 98.0 F Pulse Rate 64 Respiratory Rate 16 Blood Pressure 113/72 Pulse Oximetry 99 Oxygen Delivery Method Room Air Oxygen Delivery Method Room Air Narrative Exam Narrative: General adult woman alert oriented no acute distress Chest nonlabored respiration Extremities warm well perfused Assessment & Plan Assessment & Plan narrative: The patient requires colorectal screening and colonoscopy is recommended. Technical details were discussed. Risks, benefits, alternatives explained. Risks including but not limited to myocardial infarction, aspiration, bleeding, pain, missed lesion, incomplete examination, need for further radiographic studies, intestinal injury, and need for major abdominal surgery were discussed. All questions were answered to their satisfaction, and they are in agreement with this plan.
--- NOTE | 2024-05-07 10:54 | P.OP.COLON_ITS ---
Operative Date/Time/Diagnoses Date of procedure: 05/07/24 Time of procedure: 10:54 Pre-op diagnosis: Colorectal screening Procedure & Clinicians Study performed: Screening colonoscopy Same procedure as scheduled: Yes Indications: Colorectal screening Surgeon: Sunil Bello Procedure Notes Procedure in detail: The history and physical was performed/updated and the patient is ASA class is 2. The procedure was discussed in detail with the patient. Potential risks co mplications including infection, bleeding, missed diagnosis, perforation, need for surgery, and were explained. Their questions were answered and informed consent was obtained. Patient was brought to the procedure room and placed standard monitoring equipment. The patient's vital signs were monitored continuously throughout the entire procedure. Prior to starting time-out was performed. The patient was placed in the left lateral recumbent position. Procedural sedation was administered by anesthesia. Examination began with a thorough inspection of the perianal area there was no evidence of fissures, fistulae, external hemorrhoids or cutaneous malignancy. The colonoscopy scope was then placed into the anal canal and was advanced to the cecum, which was identified by the ileocecal valve, the appendiceal orifice and the confluence of the taenia. The scope was then slowly withdrawn examining colon thoroughly in all directions, irrigating it of any residual stool. The scope was retroflexed within the rectum The patient tolerated the procedure well. They will be discharged once criteria are met. The prep was of good/excellent quality. The withdrawl time was 6 minutes. FINDINGS * Unremarkable colonoscopy. No polyps, masses or inflammation. Specimen(s): none sent Impression: Normal colonoscopy Post-procedure Plan for aftercare: No further colonoscopy necessary unless symptomatic Disposition: same day surgery
[2024-05-07 11:17] VITALS: BP 90/52; PULSE 63; RESP 16; TEMP 36.8; O2SAT 95
[2024-05-07 11:21] VITALS: BP 93/57; PULSE 57; RESP 14; O2SAT 96
[2024-05-07 11:26] VITALS: BP 103/55; PULSE 65; RESP 14; TEMP 36.4; O2SAT 100
[2024-05-07 11:32] VITALS: BP 100/61; PULSE 55; RESP 16; O2SAT 99
== END 2024-05-07 11:45 | disposition home or self-care (01) ==
PROVIDERS: Family Provider Family Medicine; PCP Family Medicine; Referring Provider Surgery; Visit Provider Surgery
PROC: 0DJD8ZZ Inspection of Lower Intestinal Tract, Via Natural or Artificial Opening Endoscopic (ICD-10-PCS; CPT 45378; principal; 2024-05-07 11:15)
DX: Z12.11 Encounter for screening for malignant neoplasm of colon (principal)
CPT/HCPCS: G0121; J2704

== ENCOUNTER → 2024-05-10 14:18 | Outpatient (CLI) | payer MEDICARE, OTHER, SELFPAY ==
--- NOTE | 2024-05-10 14:19 | DI.MG.S_ITS ---
BILATERAL DIGITAL SCREENING MAMMOGRAM 3D/2D WITH CAD: 05/10/2024 CLINICAL: Routine screening. Personal history of right breast cancer. Family history of breast cancer. Comparison is made to exams dated: 05/01/2024 breast MRI, 04/13/2023 mammogram, 03/14/2022 mammogram, and 02/11/2021 mammogram - [facility]. Both breasts are heterogeneously dense, which may obscure small masses (category c / 51-75% glandular tissue). Current study was also evaluated with a Computer Aided Detection (CAD) system. There are benign post operative findings in the right breast. There also are biopsy clips in the left breast. No significant masses, calcifications, or other findings are seen in either breast. There has been no significant interval change. IMPRESSION: BENIGN There is no mammographic evidence of malignancy. A 1 year screening mammogram is recommended. This exam was interpreted at Station ID: [id number]. NOTE: For mammograms, a report in lay terms will be sent to the patient. Approximately 15% of breast malignancies will not be visualized mammographically. In the management of a palpable breast mass, a negative mammogram must not discourage biopsy of a clinically suspicious lesion. Electronically Signed By: Carolin Jiang M.D., Ph.D. [email or web address]/[email or web address]:05/10/2024 15:37:38 letter sent: Normal Exam ACR BI-RADS Category 2: Benign Finding(s) 3342F
== END ==
PROVIDERS: Family Provider Family Medicine; PCP Family Medicine; Referring Provider Family Medicine; Visit Provider Family Medicine
DX: Z12.31 Encounter for screening mammogram for malignant neoplasm of breast (principal); Z85.3 Personal history of malignant neoplasm of breast; Z80.3 Family history of malignant neoplasm of breast; R92.333 Mammographic heterogeneous density, bilateral breasts
CPT/HCPCS: 77063; 77067

== ENCOUNTER → 2024-05-24 06:58 | Outpatient (CLI) | payer MEDICARE, OTHER, SELFPAY ==
[2024-05-24 08:14] LABS: Hemoglobin A1C% w Est Avg Glu 6.1 % (4.0-6.0)
[2024-05-24 08:32] LABS: Alanine Aminotransferase 25 IU/L (<35); Albumin 4.3 g/dL (3.5-5.0); Albumin Globulin Ratio 1.6 (1.0-2.8); Alkaline Phosphatase 55 U/L (38-126); Aspartate Aminotransferase 30 IU/L (14-36); BUN Creatinine Ratio 25.6 (6-22); Bilirubin Total 0.6 mg/dL (0.2-1.3); Blood Urea Nitrogen 23 mg/dL (7-17); Calcium 9.4 mg/dL (8.4-10.2); Carbon Dioxide 30 mmol/L (22-32); Chloride 101 mmol/L (98-107); Estimated Glomerular Filt Rate > 60 mL/min (>60); Globulin 2.7 g/dL (1.7-4.1); Glucose 101 mg/dL (80-110); HEMOLYSIS < 15 (0-50); Potassium 4.2 mmol/L (3.4-5.1); Sodium 137 mmol/L (137-145)
[2024-05-24 11:27] LABS: Creatinine Urine Random 47.87 mg/dL
[2024-05-24 12:23] LABS: Microalbumin Urine Random < 0.6 mg/dL (0-1.6)
== END ==
PROVIDERS: Family Provider Family Medicine; PCP Family Medicine; Referring Provider Family Medicine; Visit Provider Family Medicine
DX: E11.69 Type 2 diabetes mellitus with other specified complication (principal)
CPT/HCPCS: 80053; 82043; 82570; 83036

== ENCOUNTER → 2024-05-31 14:17 | Outpatient (CLI) | payer MEDICARE, OTHER, SELFPAY ==
--- NOTE | 2024-05-31 | DI.RAD.S_ITS ---
PROCEDURE: XR ANKLE RT MIN 3V INDICATIONS: Pain in right ankle and joints of right foot TECHNIQUE: 3 views of the ankle were acquired. COMPARISON: [facility], CR, XR ANKLE RT MIN 3V, 11/17/2023, 14:14. FINDINGS: Bones: No fractures or dislocations. Ankle mortise is normally aligned. No suspicious bony lesions. Soft tissues: No tibiotalar joint effusion. Achilles tendon appears normal. IMPRESSION: No acute bony abnormality or significant effusion. Dictated by: Henri Harris M.D. on 05/31/2024 at 20:26 Approved by: Henri Harris M.D. on 05/31/2024 at 20:27
== END ==
PROVIDERS: Family Provider Family Medicine; PCP Family Medicine; Referring Provider Podiatrist Foot & Ankle Surgery; Visit Provider Podiatrist Foot & Ankle Surgery
DX: M25.571 Pain in right ankle and joints of right foot (principal)
CPT/HCPCS: 73610

== ENCOUNTER → 2024-08-13 07:02 | Outpatient (CLI) | payer MEDICARE, OTHER, SELFPAY ==
[2024-08-13 09:14] LABS: Cholesterol 170 mg/dL (140-199); HDL Cholesterol 72 mg/dL (40-60); LDL Cholesterol Calculated 86 mg/dL (<100); Triglycerides 61 mg/dL (35-150)
[2024-08-13 09:32] LABS: Hemoglobin A1C% w Est Avg Glu 5.8 % (4.0-6.0)
[2024-08-14 06:06] LABS: Apolipoprotein B 72 mg/dL (<90)
== END ==
LOC: LAB 07:03
PROVIDERS: Family Provider Family Medicine; PCP Family Medicine; Referring Provider Family Medicine; Visit Provider Family Medicine
DX: E11.9 Type 2 diabetes mellitus without complications (principal); E78.5 Hyperlipidemia, unspecified; E03.9 Hypothyroidism, unspecified
CPT/HCPCS: 36415; 80061; 82172; 83036